=== PATIENT | female | born 1960 | race Two or more races ===

== ENCOUNTER 2020-02-21 09:21 | Emergency (ER) | payer BC, OTHER ==
--- NOTE | 2020-02-21 10:36 | EDM.PDOC ---
ED HPI GENERAL MEDICAL PROBLEM - General Chief Complaint: Respiratory Problem Stated Complaint: RESPARATORY PROBLEMS Time Seen by Provider: 02/21/20 09:31 Source of Information: Reports: Patient History Limitations: Reports: No Limitations - History of Present Illness INITIAL COMMENTS - FREE TEXT/NARRATIVE: Mildred comes to [facility] ED with a 3 day hx of productive cough, some sweats, and possible low grade fever. In addition, there is some retrosternal chest pain aggravated with coughing, occasional wheezes, and some sore throat. There is presumptive exposure to a co worker last week on and Wednesday who had vacationed in [place]. In addition, Mildred's life partner has thyroid CA awaiting treatment. She has taken cough meds OTC. 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 - Related Data Allergies Allergy/AdvReac Type Severity Reaction Status Date / Time cyclobenzaprine HCl Allergy Mild Irritabilit Verified 02/21/20 09:28 [From Flexeril] y ibuprofen Allergy Mild Hives Verified 02/21/20 09:28 morphine Allergy Mild Rash Verified 02/21/20 09:28 codeine Allergy Unknown Chest Verified 02/21/20 09:28 Tightness meperidine HCl [From Demerol] Allergy Rash Verified 02/21/20 09:28 tramadol Allergy Other Verified 02/21/20 09:28 Home Meds: Home Meds Aspirin 81 mg PO DAILY 10/12/15 [History] Hydrochlorothiazide 25 mg PO DAILY 10/12/15 [History] Insulin Detemir [Levemir Flextouch] 80 unit SQ BEDTIME 10/12/15 [History] Lisinopril 20 mg DAILY 10/12/15 [History] Omeprazole 20 mg BID 10/12/15 [History] atenoloL [Atenolol] 100 mg DAILY 10/12/15 [History] metFORMIN [Glucophage] 1,000 mg BID 10/12/15 [History] DULoxetine [Cymbalta] 60 mg PO BEDTIME 02/21/20 [History] Insulin Aspart [NovoLOG] 38 units SQ BID 02/21/20 [History] Loratadine 10 mg PO DAILY 02/21/20 [History] Past Medical History Cardiovascular History: Reports: Hypertension Respiratory History: Reports: COPD Gastrointestinal History: Reports: Diverticulosis Genitourinary History: Reports: UTI, Recurrent 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, Musculoskeletal History: Reports: Arthritis, Neck Pain, Chronic Psychiatric History: Reports: Addiction, Anxiety, Depression, Psych Hospitalization(s), Suicide Attempt Other Psychiatric History: ETOH addiction Endocrine/Metabolic History: Reports: Diabetes, Type II, Hypothyroidism, Obesity /BMI 30+ - Infectious Disease History Infectious Disease History: Reports: Measles - Past Surgical History HEENT Surgical History: Reports: Adenoidectomy, Tonsillectomy GI Surgical History: Reports: Cholecystectomy, Colonoscopy, EGD Female Surgical History: Reports: Hysterectomy, Salpingo-Oophorectomy, Tubal Ligation, Other (See Below) Other Female Surgeries/Procedures: rectocele Social & Family History - Family History Family Medical History: Noncontributory - Tobacco Use Smoking Status *Q: Former Smoker Years of Tobacco use: 35 Used Tobacco, but Quit: Yes Month/Year Tobacco Last Used: 2014 - Caffeine Use Caffeine Use: Reports: Coffee, Soda - Recreational Drug Use Recreational Drug Use: No ED ROS GENERAL - Review of Systems Review Of Systems: See Below Constitutional: Reports: Fever, Malaise, Night Sweats HEENT: Reports: Throat Pain Respiratory: Reports: Wheezing, Cough Cardiovascular: Reports: Chest Pain Endocrine: Reports: No Symptoms GI/Abdominal: Reports: No Symptoms : Reports: No Symptoms Musculoskeletal: Reports: No Symptoms Skin: Reports: No Symptoms Neurological: Reports: No Symptoms Psychiatric: Reports: No Symptoms Hematologic/Lymphatic: Reports: No Symptoms Immunologic: Reports: No Symptoms ED EXAM, GENERAL - Physical Exam Exam: See Below Exam Limited By: No Limitations General Appearance: Alert, WD/WN, No Apparent Distress Eye Exam: Bilateral Eye: EOMI, Normal Inspection, PERRL Ears: Normal External Exam Nose: Normal Inspection Throat/Mouth: Normal Lips, Normal Teeth, Normal Gums, Normal Oropharynx, No Airway Compromise Head: Normocephalic Neck: Normal Inspection, Supple, Non-Tender Respiratory/Chest: No Respiratory Distress, No Accessory Muscle Use, Chest Non- Tender, Decreased Breath Sounds, Crackles, Rhonchi, Wheezing Cardiovascular: Regular Rate, Rhythm, No Murmur GI/Abdominal: Normal Bowel Sounds, Soft, Non-Tender, No Organomegaly, No Distention, No Mass (Female) Exam: Deferred Rectal (Female) Exam: Deferred Back Exam: Normal Inspection Extremities: Normal Inspection Neurological: Alert, Oriented, CN II-XII Intact Psychiatric: Normal Affect, Normal Mood Skin Exam: Warm, Dry, Intact, Normal Color Lymphatic: No Adenopathy Course - Vital Signs Text/Narrative:: Following assessment in Respiratory Isolation room, screening tests including CBC, CMP, RSS, Rapid Inf A&B were negative. The Covid 19 is pending. The chest xray was neg. Probable bronchitis, managed sxs at this time. Last Recorded V/S: Last Vital Signs Temp 36.8 C 02/21/20 09:21 Pulse 96 02/21/20 09:21 Resp 20 02/21/20 09:21 BP 132/78 02/21/20 09:21 Pulse Ox 99 02/21/20 09:21 - Orders/Labs/Meds Orders: Active Orders 24 hr Category Date Time Status Chest 1V Frontal [CR] Stat Exams 02/21/20 09:40 Taken CORONAVIRUS COVID-19, HIWOT Routine Lab 02/21/20 10:00 Received CULTURE BLOOD [BC] Routine Lab 02/21/20 10:10 Received CULTURE BLOOD [BC] Stat Lab 02/21/20 10:05 Received CULTURE STREP A CONFIRMATION [RM] Stat Lab 02/21/20 09:40 Results STREP SCRN A RAPID W CULT CONF [RM] Stat Lab 02/21/20 09:40 Results Isolation [COMM] Routine Oth 02/21/20 09:41 Ordered Labs: Laboratory Tests 02/21/20 02/21/20 Range/Units 10:05 10:05 WBC 10.5 (4.5-12.0) X10-3/uL RBC 5.14 (3.23-5.20) x10(6)uL Hgb 14.8 (11.5-15.5) g/dL Hct 45.0 (30.0-51.3) % MCV 87.6 (80-96) fL MCH 28.9 (27.7-33.6) pg MCHC 33.0 (32.2-35.4) g/dL RDW 12.9 (11.5-15.5) % Plt Count 242 (125-369) X10(3)uL MPV 8.3 (7.4-10.4) fL Neut % (Auto) 66.2 (46-82) % Lymph % (Auto) 23.4 (13-37) % [place] % (Auto) 6.5 (4-12) % Eos % (Auto) 3 (1.0-5.0) % Baso % (Auto) 1 (0-2) % Neut # (Auto) 7.0 (1.6-8.3) # Lymph # (Auto) 2.4 (0.6-5.0) # [place] # (Auto) 0.7 (0.0-1.3) # Eos # (Auto) 0.3 (0.0-0.8) # Baso # (Auto) 0.1 (0.0-0.2) # Sodium 138 (135-145) mmol/L Potassium 4.4 (3.5-5.3) mmol/L Chloride 100 (100-110) mmol/L Carbon Dioxide 29 (21-32) mmol/L BUN 18 (7-18) mg/dL Creatinine 0.9 (0.55-1.02) mg/dL Est Cr Clr Drug Dosing 52.57 mL/min Estimated GFR (MDRD) > 60 (>60) BUN/Creatinine Ratio 20.0 (9-20) Glucose 188 H (80-116) mg/dL Calcium 9.3 (8.6-10.2) mg/dL Departure - Departure Time of Disposition: 12:11 Disposition: Home, Self-Care 01 Condition: Fair Clinical Impression: Bronchitis - Discharge Information *PRESCRIPTION DRUG MONITORING PROGRAM REVIEWED*: Not Applicable *COPY OF PRESCRIPTION DRUG MONITORING REPORT IN PATIENT CHIARA: Not Applicable Forms: ED Department Discharge Sepsis Event Note - Evaluation Sepsis Screening Result: No Definite Risk - Focused Exam Vital Signs: Vital Signs Temp Pulse Resp BP Pulse Ox 02/21/20 09:21 36.8 C 96 20 132/78 99 Date Exam was Performed: 02/21/20 Time Exam was Performed: 12:09 - Problem List & Annotations (1) Bronchitis SNOMED Code(s): 61213822 Code(s): J40 - BRONCHITIS, NOT SPECIFIED ACUTE OR CHRONIC Status: Acute Current Visit: Yes Annotation/Comment:: Suspected viral bronchitis, managed sxs. No anti bx dispensed. We will contact her when Covid 19 screen is available. - Problem List Review Problem List Initiated/Reviewed/Updated: Yes - My Orders Last 24 Hours: My Active Orders 02/21/20 09:40 Chest 1V Frontal [CR] Stat CULTURE STREP A CONFIRMATION [RM] Stat STREP SCRN A RAPID W CULT CONF [RM] Stat 02/21/20 09:41 Isolation [COMM] Routine 02/21/20 10:00 CORONAVIRUS COVID-19, HIWOT Routine 02/21/20 10:05 CULTURE BLOOD [BC] Stat 02/21/20 10:10 CULTURE BLOOD [BC] Routine - Assessment/Plan Last 24 Hours: My Active Orders 02/21/20 09:40 Chest 1V Frontal [CR] Stat CULTURE STREP A CONFIRMATION [RM] Stat STREP SCRN A RAPID W CULT CONF [RM] Stat 02/21/20 09:41 Isolation [COMM] Routine 02/21/20 10:00 CORONAVIRUS COVID-19, HIWOT Routine 02/21/20 10:05 CULTURE BLOOD [BC] Stat 02/21/20 10:10 CULTURE BLOOD [BC] Routine Plan: Follow up with PCP.
--- NOTE | 2020-02-21 11:31 | CR ---
INDICATION: Possible pneumonia. CHEST: An AP upright view of the chest 02/21/20 was compared with 08/09/14, again revealing evidence of exogenous obesity. The heart appears to be at the upper limits of normal in size but is emphasized by the AP positioning. A definite active infiltrate or effusion was not identified. IMPRESSION: 1. No definite acute process. 2. Possible ASHD. 3. Exogenous obesity. MTDD
[2020-02-21 13:42] VITALS: BP 128/72; PULSE 94
== END 2020-02-21 12:35 | disposition home or self-care (01) ==
LOC: FB.ED 09:21
DX: J40 Bronchitis, not specified as acute or chronic (principal); E11.9 Type 2 diabetes mellitus without complications; E03.9 Hypothyroidism, unspecified; F41.9 Anxiety disorder, unspecified; F32.9 Major depressive disorder, single episode, unspecified; J44.9 Chronic obstructive pulmonary disease, unspecified; E66.9 Obesity, unspecified; I10 Essential (primary) hypertension; M19.90 Unspecified osteoarthritis, unspecified site; Z87.891 Personal history of nicotine dependence; Z88.5 Allergy status to narcotic agent; Z79.4 Long term (current) use of insulin; Z79.899 Other long term (current) drug therapy; Z88.8 Allergy status to other drugs, medicaments and biological substances
CPT/HCPCS: 36415; 71045; 80048; 85025; 87040; 87081; 87804; 87804-59; 87880-QW; 99285-25; U0002

== ENCOUNTER 2020-10-30 18:57 | Emergency (ER) | payer BC ==
[2020-10-30] MEDS ORDERED: Aspirin 81 MG Tab.Chew PO STA (19:37)
[2020-10-30] MEDS ORDERED: Morphine 2 MG/ML SYRINGE IVPUSH STA (20:47)
[2020-10-30] MEDS: Sodium Chloride 0.9% 10 ML Syringe FLUSH PRN ×2 (20:50→20:51)
[2020-10-30 22:25] VITALS: BP 123/67; PULSE 120
--- NOTE | 2020-10-31 02:37 | EDM.PDOC ---
ED HPI GENERAL MEDICAL PROBLEM - General Chief Complaint: Chest Pain Stated Complaint: CHEST PAIN Time Seen by Provider: 10/30/20 19:00 Source of Information: Reports: Patient History Limitations: Reports: No Limitations - History of Present Illness INITIAL COMMENTS - FREE TEXT/NARRATIVE: Patient presented to the ED because of chest pain which started 2 days ago. The pain is sharp, 4/10, with associated dyspnea. Denies having any fever, chills, cough/cold symptoms or any nausea, vomiting, diarrhea. midsternal Pain Score (Numeric/FACES): 1 - Related Data Allergies Allergy/AdvReac Type Severity Reaction Status Date / Time cyclobenzaprine HCl Allergy Mild Irritabilit Verified 10/30/20 19:08 [From Flexeril] y ibuprofen Allergy Mild Hives Verified 10/30/20 19:08 morphine Allergy Mild Rash Verified 10/30/20 19:08 codeine Allergy Unknown Chest Verified 10/30/20 19:08 Tightness meperidine HCl [From Demerol] Allergy Rash Verified 10/30/20 19:08 tramadol Allergy Other Verified 10/30/20 19:08 Home Meds: Home Meds Aspirin 81 mg PO DAILY 10/12/15 [History] Insulin Detemir [Levemir Flextouch] 80 unit SQ BEDTIME 10/12/15 [History] Lisinopril 30 mg PO DAILY 10/12/15 [History] metFORMIN [Glucophage] 1,000 mg PO BID 10/12/15 [History] Insulin Aspart [NovoLOG] 10 units SQ BID PRN 02/21/20 [History] Loratadine 10 mg PO DAILY 02/21/20 [History] Amoxicillin 500 mg PO Q6H 10/30/20 [History] DULoxetine [Cymbalta] 20 mg PO DAILY 10/30/20 [History] DULoxetine [Cymbalta] 60 mg PO DAILY 10/30/20 [History] Fluconazole [Diflucan] 150 mg PO DAILY PRN 10/30/20 [History] Metoprolol Succinate 50 mg PO DAILY 10/30/20 [History] Omeprazole 40 mg PO DAILY 10/30/20 [History] oxyCODONE HCl/Acetaminophen [Oxycodone-Acetaminophen 5-325] 1 each PO Q6H PRN 10/30/20 [History] Past Medical History HEENT History: Reports: Other (See Below) Other HEENT History: 1220 lower bottom teeth extracted/sutures in place, placed on Amoxicillin 500mg and oxycodone/apap 5mg prn Cardiovascular History: Reports: Hypertension Respiratory History: Reports: COPD Gastrointestinal History: Reports: Diverticulosis Genitourinary History: Reports: UTI, Recurrent 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, Musculoskeletal History: Reports: Arthritis, Neck Pain, Chronic Psychiatric History: Reports: Addiction, Anxiety, Depression, Psych Hospitalization(s), Suicide Attempt Other Psychiatric History: ETOH addiction Endocrine/Metabolic History: Reports: Diabetes, Type II, Hypothyroidism, Obesity/BMI 30+ - Infectious Disease History Infectious Disease History: Reports: Measles - Past Surgical History Head Surgeries/Procedures: Reports: None HEENT Surgical History: Reports: Adenoidectomy, Tonsillectomy Cardiovascular Surgical History: Reports: None Respiratory Surgical History: Reports: None GI Surgical History: Reports: Cholecystectomy, Colonoscopy, EGD Female Surgical History: Reports: Hysterectomy, Salpingo-Oophorectomy, Tubal Ligation, Other (See Below) Other Female Surgeries/Procedures: rectocele Endocrine Surgical History: Reports: Other (See Below) Other Endocrine Surgeries/Procedures: blood sugar reader right upper/arm Social & Family History - Family History Family Medical History: No Pertinent Family History - Tobacco Use Tobacco Use Status *Q: Former Tobacco User Used Tobacco, but Quit: Yes Month/Year Tobacco Last Used: 2014 - Caffeine Use Caffeine Use: Reports: Soda Caffeine Use Comment: 1-2 diet sodas daily - Recreational Drug Use Recreational Drug Use: No ED ROS GENERAL - Review of Systems Review Of Systems: See Below Constitutional: Reports: No Symptoms HEENT: Reports: No Symptoms Respiratory: Reports: No Symptoms Cardiovascular: Reports: Chest Pain Endocrine: Reports: No Symptoms GI/Abdominal: Reports: No Symptoms : Reports: No Symptoms Musculoskeletal: Reports: No Symptoms Skin: Reports: No Symptoms Neurological: Reports: No Symptoms Psychiatric: Reports: No Symptoms ED EXAM, GENERAL - Physical Exam Exam: See Below Exam Limited By: No Limitations General Appearance: Alert, No Apparent Distress Eye Exam: Bilateral Eye: PERRL Ears: Normal External Exam Nose: Normal Inspection, Normal Mucosa Throat/Mouth: Normal Inspection Head: Atraumatic, Normocephalic Neck: Normal Inspection, Supple, Non-Tender, Full Range of Motion Respiratory/Chest: No Respiratory Distress, Lungs Clear, Normal Breath Sounds Cardiovascular: Normal Peripheral Pulses, Regular Rate, Rhythm, No Edema GI/Abdominal: Normal Bowel Sounds, Soft, Non-Tender, No Organomegaly Back Exam: Normal Inspection, Full Range of Motion Extremities: Normal Inspection, Normal Range of Motion, Non-Tender Course - Vital Signs Text/Narrative:: Labs/EKG/CXR was reviewed with patient EKG-new LBBB Trop#1-51 Trop #2-1015 ASA 324 po x1 NTG 0.4 mg SL Morphine 2 mg IV x1 Heparin 4000 U IV bolus Heparin drip @ 1000 U/hr Case discussed with Dr Sousa who agreed with the above plan of care. Last Recorded V/S: Last Vital Signs Temp 36.7 C 10/30/20 21:51 Pulse 120 H 10/30/20 21:51 Resp 20 10/30/20 21:51 BP 123/67 10/30/20 21:51 Pulse Ox 100 10/30/20 21:51 - Orders/Labs/Meds Orders: Active Orders 24 hr Category Date Time Status Blood Glucose Check, Bedside [RC] ONETIME Care 10/30/20 22:46 Active EKG Documentation Completion [RC] ASDIRECTED Care 10/30/20 19:36 Active EKG Documentation Completion [RC] ASDIRECTED Care 10/31/20 02:30 Ordered Oxygen Therapy Adult [Oxygen Therapy, ED] [RC] Care 10/30/20 22:46 Active ASDIRECTED Chest 1V Frontal [CR] Stat Exams 10/30/20 19:36 Taken Sodium Chloride 0.9% [Saline Flush] Med 10/30/20 20:45 Active 10 ml FLUSH ASDIRECTED PRN EKG 12 Lead [EK] Routine Ther 10/30/20 19:35 Ordered EKG 12 Lead [EK] Routine Ther 10/31/20 02:26 Ordered Medication Orders Sodium Chloride (Saline Flush) 10 ml FLUSH ASDIRECTED PRN PRN Reason: Keep Vein Open Last Admin: 10/30/20 20:51 Dose: 10 ml Documented by: Admin: 10/30/20 20:50 Dose: 10 ml Documented by: DEN Labs: Laboratory Tests 10/30/20 10/30/20 10/30/20 Range/Units 19:15 19:15 19:15 WBC 11.7 H (3.0-10.3) x10-3/uL RBC 4.97 (3.60-5.20) x10(6)uL Hgb 14.0 (11.4-15.5) g/dL Hct 43.3 (34.2-48.2) % MCV 87.1 (76.7-100.5) fL MCH 28.1 (23.9-33.9) pg MCHC 32.3 (31.9-34.8) g/dL RDW 13.7 (12.3-16.5) % Plt Count 245 (151-488) x10(3)uL MPV 8.1 (7.1-12.4) fL Neut % (Auto) 66.9 (30.8-76.2) % Lymph % (Auto) 26.0 (18.4-52.1) % [place] % (Auto) 4.7 (4.4-15.7) % Eos % (Auto) 2.0 (0.6-8.1) % Baso % (Auto) 0.4 (0.2-1.5) % Neut # (Auto) 7.8 H (1.5-6.3) x10-3/uL Lymph # (Auto) 3.0 (1.0-4.4) x10-3/uL [place] # (Auto) 0.5 (0.3-1.0) x10-3/uL Eos # (Auto) 0.2 (0.0-0.8) x10-3/uL Baso # (Auto) 0.1 (0.0-0.1) x10-3/uL PT (9.0-11.1) sec INR (1.00-1.24) APTT (24.4-33.2) SECONDS D-Dimer, Quantitative 1.93 H (0.0-0.59) mg/LFEU Sodium 136 (135-145) mmol/L Potassium 4.0 (3.5-5.3) mmol/L Chloride 99 L (100-110) mmol/L Carbon Dioxide 28 (21-32) mmol/L BUN 15 (7-18) mg/dL Creatinine 0.9 (0.55-1.02) mg/dL Est Cr Clr Drug Dosing TNP Estimated GFR (MDRD) > 60 (>60) BUN/Creatinine Ratio 16.7 (9-20) Glucose 238 H (80-116) mg/dL POC Glucose (74-100) mg/dL Calcium 8.9 (8.6-10.2) mg/dL Total Bilirubin 0.6 (0.1-1.3) mg/dL AST 29 H (5-25) IU/L ALT 28 (12-36) U/L Alkaline Phosphatase 108 (56-112) IU/L Troponin I (4.0-60.3) pg/mL NT-Pro-B Natriuret Pep (<=125) pg/mL Total Protein 8.9 H (6.0-8.0) g/dL Albumin 3.4 (3.2-4.6) g/dL Globulin 5.5 g/dL Albumin/Globulin Ratio 0.6 10/30/20 10/30/20 10/30/20 Range/Units 19:15 19:15 19:22 WBC (3.0-10.3) x10-3/uL RBC (3.60-5.20) x10(6)uL Hgb (11.4-15.5) g/dL Hct (34.2-48.2) % MCV (76.7-100.5) fL MCH (23.9-33.9) pg MCHC (31.9-34.8) g/dL RDW (12.3-16.5) % Plt Count (151-488) x10(3)uL MPV (7.1-12.4) fL Neut % (Auto) (30.8-76.2) % Lymph % (Auto) (18.4-52.1) % [place] % (Auto) (4.4-15.7) % Eos % (Auto) (0.6-8.1) % Baso % (Auto) (0.2-1.5) % Neut # (Auto) (1.5-6.3) x10-3/uL Lymph # (Auto) (1.0-4.4) x10-3/uL [place] # (Auto) (0.3-1.0) x10-3/uL Eos # (Auto) (0.0-0.8) x10-3/uL Baso # (Auto) (0.0-0.1) x10-3/uL PT 10.9 (9.0-11.1) sec INR 1.01 (1.00-1.24) APTT 25.9 (24.4-33.2) SECONDS D-Dimer, Quantitative (0.0-0.59) mg/LFEU Sodium (135-145) mmol/L Potassium (3.5-5.3) mmol/L Chloride (100-110) mmol/L Carbon Dioxide (21-32) mmol/L BUN (7-18) mg/dL Creatinine (0.55-1.02) mg/dL Est Cr Clr Drug Dosing Estimated GFR (MDRD) (>60) BUN/Creatinine Ratio (9-20) Glucose (80-116) mg/dL POC Glucose 189 H (74-100) mg/dL Calcium (8.6-10.2) mg/dL Total Bilirubin (0.1-1.3) mg/dL AST (5-25) IU/L ALT (12-36) U/L Alkaline Phosphatase (56-112) IU/L Troponin I 51.0 (4.0-60.3) pg/mL NT-Pro-B Natriuret Pep 25 (<=125) pg/mL Total Protein (6.0-8.0) g/dL Albumin (3.2-4.6) g/dL Globulin g/dL Albumin/Globulin Ratio 10/31/20 Range/Units 02:00 WBC (3.0-10.3) x10-3/uL RBC (3.60-5.20) x10(6)uL Hgb (11.4-15.5) g/dL Hct (34.2-48.2) % MCV (76.7-100.5) fL MCH (23.9-33.9) pg MCHC (31.9-34.8) g/dL RDW (12.3-16.5) % Plt Count (151-488) x10(3)uL MPV (7.1-12.4) fL Neut % (Auto) (30.8-76.2) % Lymph % (Auto) (18.4-52.1) % [place] % (Auto) (4.4-15.7) % Eos % (Auto) (0.6-8.1) % Baso % (Auto) (0.2-1.5) % Neut # (Auto) (1.5-6.3) x10-3/uL Lymph # (Auto) (1.0-4.4) x10-3/uL [place] # (Auto) (0.3-1.0) x10-3/uL Eos # (Auto) (0.0-0.8) x10-3/uL Baso # (Auto) (0.0-0.1) x10-3/uL PT (9.0-11.1) sec INR (1.00-1.24) APTT (24.4-33.2) SECONDS D-Dimer, Quantitative (0.0-0.59) mg/LFEU Sodium (135-145) mmol/L Potassium (3.5-5.3) mmol/L Chloride (100-110) mmol/L Carbon Dioxide (21-32) mmol/L BUN (7-18) mg/dL Creatinine (0.55-1.02) mg/dL Est Cr Clr Drug Dosing Estimated GFR (MDRD) (>60) BUN/Creatinine Ratio (9-20) Glucose (80-116) mg/dL POC Glucose (74-100) mg/dL Calcium (8.6-10.2) mg/dL Total Bilirubin (0.1-1.3) mg/dL AST (5-25) IU/L ALT (12-36) U/L Alkaline Phosphatase (56-112) IU/L Troponin I 1014.7 H* (4.0-60.3) pg/mL NT-Pro-B Natriuret Pep (<=125) pg/mL Total Protein (6.0-8.0) g/dL Albumin (3.2-4.6) g/dL Globulin g/dL Albumin/Globulin Ratio Meds: Medications Generic Name Dose Route Start Last Admin Trade Name Freq PRN Reason Stop Dose Admin Sodium Chloride 10 ml 10/30/20 20:45 10/30/20 20:51 Saline Flush FLUSH 10 ml ASDIRECTED PRN Administration Keep Vein Open Discontinued Medications Generic Name Dose Route Start Last Admin Trade Name Freq PRN Reason Stop Dose Admin Aspirin 324 mg 10/30/20 19:37 10/30/20 19:15 Aspirin PO 10/30/20 19:38 324 mg NOW STA Administration Morphine Sulfate 2 mg 10/30/20 20:47 10/30/20 20:51 Morphine IVPUSH 10/30/20 20:48 2 mg NOW STA Administration Departure - Departure Time of Disposition: 02:50 Disposition: DC/Tfer to Acute Hospital 02 Reason for Transfer *Q: Other Condition: Good Clinical Impression: NSTEMI (non-ST elevated myocardial infarction) Referrals: PCP,None [Primary Care Provider] - Sepsis Event Note (ED) - Evaluation Sepsis Screening Result: No Definite Risk - Focused Exam Vital Signs: Vital Signs Temp Pulse Resp BP BP Pulse Ox Pulse Ox 10/30/20 21:51 36.7 C 120 H 20 123/67 100 10/30/20 20:27 111 H 17 167/97 H 172/103 H 100 10/30/20 19:15 98 10/30/20 18:57 36.6 C 106 H 18 188/100 H 100 - My Orders Last 24 Hours: My Active Orders 10/30/20 19:35 EKG 12 Lead [EK] Routine 10/30/20 19:36 EKG Documentation Completion [RC] ASDIRECTED Chest 1V Frontal [CR] Stat 10/30/20 20:45 Sodium Chloride 0.9% [Saline Flush] 10 ml FLUSH ASDIRECTED PRN 10/30/20 22:46 Blood Glucose Check, Bedside [RC] ONETIME Oxygen Therapy Adult [Oxygen Therapy, ED] [RC] ASDIRECTED 10/31/20 02:26 EKG 12 Lead [EK] Routine 10/31/20 02:30 EKG Documentation Completion [RC] ASDIRECTED - Assessment/Plan Last 24 Hours: My Active Orders 10/30/20 19:35 EKG 12 Lead [EK] Routine 10/30/20 19:36 EKG Documentation Completion [RC] ASDIRECTED Chest 1V Frontal [CR] Stat 10/30/20 20:45 Sodium Chloride 0.9% [Saline Flush] 10 ml FLUSH ASDIRECTED PRN 10/30/20 22:46 Blood Glucose Check, Bedside [RC] ONETIME Oxygen Therapy Adult [Oxygen Therapy, ED] [RC] ASDIRECTED 10/31/20 02:26 EKG 12 Lead [EK] Routine 10/31/20 02:30 EKG Documentation Completion [RC] ASDIRECTED
[2020-10-31] MEDS ORDERED: Heparin Sodium 5,000 Units/ML Vial IVPUSH ONE (02:48)
[2020-10-31] MEDS ORDERED: Heparin Sodium/0.45% NaCl 500 ML IV SCH (02:49)
[2020-10-31] MEDS ORDERED: Morphine 2 MG/ML SYRINGE IVPUSH STA (03:15)
[2020-10-31] MEDS: Sodium Chloride 0.9% 10 ML Syringe FLUSH PRN (03:22)
== END 2020-10-31 03:35 ==
LOC: FB.ED 18:57
DX: I21.4 Non-ST elevation (NSTEMI) myocardial infarction (principal); I10 Essential (primary) hypertension; J44.9 Chronic obstructive pulmonary disease, unspecified; M19.90 Unspecified osteoarthritis, unspecified site; F41.9 Anxiety disorder, unspecified; F32.9 Major depressive disorder, single episode, unspecified; E11.9 Type 2 diabetes mellitus without complications; E03.9 Hypothyroidism, unspecified; E66.9 Obesity, unspecified; Z87.891 Personal history of nicotine dependence; Z68.35 Body mass index [BMI] 35.0-35.9, adult; Z88.8 Allergy status to other drugs, medicaments and biological substances; Z88.6 Allergy status to analgesic agent; Z88.5 Allergy status to narcotic agent; Z79.82 Long term (current) use of aspirin; Z79.4 Long term (current) use of insulin; Z79.899 Other long term (current) drug therapy
CPT/HCPCS: 36415; 71045; 80053; 82962; 83880; 84484; 85025; 85379; 85610; 85730; 93005; 96365; 96375; 96376; 99285; A9270; J1644; J2270

== ENCOUNTER 2021-01-20 13:51 | Emergency (ER) | payer BC ==
[2021-01-20] MEDS ORDERED: Sodium Chloride 0.9% 10 ML Syringe FLUSH PRN (13:52)
[2021-01-20] MEDS ORDERED: Aspirin 81 MG Tab.Chew PO ONE ×2 (13:54→13:59)
[2021-01-20] MEDS ORDERED: Nitroglycerin 0.4 MG Tab.SL SL PRN (13:59)
--- NOTE | 2021-01-20 14:07 | EDM.PDOC ---
ED HPI GENERAL MEDICAL PROBLEM - General Chief Complaint: Cardiovascular Problem Stated Complaint: CHEST PAIN Time Seen by Provider: 01/20/21 14:01 Source of Information: Reports: Patient History Limitations: Reports: No Limitations - History of Present Illness INITIAL COMMENTS - FREE TEXT/NARRATIVE: Presents with non-radiating substernal chest pain, described as an ache, onset 0600 today. Pain is exacerbated with exertion. Denies SOB. Has had intermittent chest pain x 1 week. Patient had a NSTEMI on 10/30/20, transferred to [facility], underwent LAD stent placement. Patient states today's pain feels similar. PMHx includes T2DM, CAD, and HTN. Patient took ASA 81mg PO this morning, and NTG SL x 1 at 12 noon. Chest pain improved after the NTG (from 4/10 to 3/10). Onset Date: 01/20/21 Onset Time: 06:00 Location: Reports: Chest Quality: Reports: Ache Severity: Moderate Worsens with: Reports: Other (Exertion) - Related Data Allergies Allergy/AdvReac Type Severity Reaction Status Date / Time cyclobenzaprine HCl Allergy Mild Irritabilit Verified 10/30/20 19:08 [From Flexeril] y ibuprofen Allergy Mild Hives Verified 10/30/20 19:08 morphine Allergy Mild Rash Verified 10/30/20 19:08 codeine Allergy Unknown Chest Verified 10/30/20 19:08 Tightness tramadol Allergy Other Verified 10/30/20 19:08 Home Meds: Home Meds Aspirin 81 mg PO DAILY 10/12/15 [History] Insulin Detemir [Levemir Flextouch] 80 unit SQ BEDTIME 10/12/15 [History] Lisinopril 30 mg PO DAILY 10/12/15 [History] metFORMIN [Glucophage] 1,000 mg PO BID 10/12/15 [History] Insulin Aspart [NovoLOG] 10 units SQ BID PRN 02/21/20 [History] Loratadine 10 mg PO DAILY 02/21/20 [History] Amoxicillin 500 mg PO Q6H 10/30/20 [History] DULoxetine [Cymbalta] 20 mg PO DAILY 10/30/20 [History] DULoxetine [Cymbalta] 60 mg PO DAILY 10/30/20 [History] Fluconazole [Diflucan] 150 mg PO DAILY PRN 10/30/20 [History] Metoprolol Succinate 50 mg PO DAILY 10/30/20 [History] Omeprazole 40 mg PO DAILY 10/30/20 [History] oxyCODONE HCl/Acetaminophen [Oxycodone-Acetaminophen 5-325] 1 each PO Q6H PRN 10/30/20 [History] Past Medical History HEENT History: Reports: Other (See Below) Other HEENT History: 10-30-20 lower bottom teeth extracted/sutures in place, placed on Amoxicillin 500mg and oxycodone/apap 5mg prn Cardiovascular History: Reports: Hypertension, [place] (10/2020), PTCA, Other (See Below) (LBBB) Respiratory History: Reports: COPD Gastrointestinal History: Reports: Diverticulosis Genitourinary History: Reports: UTI, Recurrent 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, Musculoskeletal History: Reports: Arthritis, Neck Pain, Chronic Psychiatric History: Reports: Addiction, Anxiety, Depression, Psych Hospitalization(s), Suicide Attempt Other Psychiatric History: ETOH addiction Endocrine/Metabolic History: Reports: Diabetes, Type II, Hypothyroidism, Obesity/BMI 30+ - Infectious Disease History Infectious Disease History: Reports: Measles - Past Surgical History Head Surgeries/Procedures: Reports: None HEENT Surgical History: Reports: Adenoidectomy, Tonsillectomy Cardiovascular Surgical History: Reports: Coronary Artery Stent Respiratory Surgical History: Reports: None GI Surgical History: Reports: Cholecystectomy, Colonoscopy, EGD Female Surgical History: Reports: Hysterectomy, Salpingo-Oophorectomy, Tubal Ligation, Other (See Below) Other Female Surgeries/Procedures: rectocele Endocrine Surgical History: Reports: Other (See Below) Other Endocrine Surgeries/Procedures: blood sugar reader right upper/arm Social & Family History - Family History Family Medical History: No Pertinent Family History - Tobacco Use Tobacco Use Within Last Twelve Months: No - Caffeine Use Caffeine Use: Reports: Soda Caffeine Use Comment: 1-2 diet sodas daily ED ROS GENERAL - Review of Systems Review Of Systems: Comprehensive ROS is negative, except as noted in HPI. ED EXAM, GENERAL - Physical Exam Exam: See Below Exam Limited By: No Limitations General Appearance: Alert, WD/WN, No Apparent Distress Throat/Mouth: No Airway Compromise Head: Atraumatic, Normocephalic Neck: Full Range of Motion Respiratory/Chest: No Respiratory Distress, Lungs Clear, Normal Breath Sounds, Chest Non-Tender Cardiovascular: Regular Rate, Rhythm, No Gallop, No Murmur GI/Abdominal: Normal Bowel Sounds, Soft, Non-Tender, No Distention Back Exam: Full Range of Motion Extremities: Normal Range of Motion, Non-Tender Neurological: Alert, Normal Cognition Psychiatric: Normal Affect, Normal Mood Skin Exam: Warm, Dry, Intact #1 Interpretation EKG Date: 01/20/21 Time: 13:48 Rhythm: NSR Rate (Beats/Min): 98 [place]: Normal P-Wave: Present QRS: Other (incomplete LBBB) ST-T: Normal QT: Normal Comparison: No Change (10/30/2020) Course - Vital Signs Last Recorded V/S: Last Vital Signs Temp 37.0 C 01/20/21 13:51 Pulse 96 01/20/21 13:51 Resp 18 01/20/21 13:51 BP 111/57 L 01/20/21 14:22 Pulse Ox 98 01/20/21 13:51 - Orders/Labs/Meds Orders: Active Orders 24 hr Category Date Time Status EKG Documentation Completion [RC] ASDIRECTED Care 01/20/21 13:52 Active CXR [Chest 1V Frontal] [CR] Stat Exams 01/20/21 13:52 Taken Heparin 25,000 Units @ 20MLS/HR Med 01/20/21 14:45 Ordered Heparin Sodium/0.45% NaCl [Heparin 25,000 Units in 1/2 NS 500 ML] 500 ml IV ASDIRECTED Nitroglycerin [Nitrostat] Med 01/20/21 13:59 Active 0.4 mg SL Q5M PRN Sodium Chloride 0.9% [Normal Saline] 500 ml Med 01/20/21 14:33 Active IV .BOLUS Sodium Chloride 0.9% [Saline Flush] Med 01/20/21 13:52 Active 10 ml FLUSH ASDIRECTED PRN Saline Lock Insert [OM.PC] Routine Oth 01/20/21 13:52 Ordered EKG 12 Lead [EK] Stat Ther 01/20/21 13:52 Ordered Medication Orders Sodium Chloride (Normal Saline) 500 mls @ 500 mls/hr IV .BOLUS ONE Stop: 01/20/21 15:32 Last Admin: 01/20/21 14:40 Dose: 500 mls/hr Documented by: ANAM Heparin Sodium/Sodium Chloride (Heparin 25,000 Units In 1/2 Ns 500 Ml) 500 mls @ 20 mls/hr IV ASDIRECTED THUAN Nitroglycerin (Nitrostat) 0.4 mg SL Q5M PRN PRN Reason: Chest Pain Last Admin: 01/20/21 14:22 Dose: 0.4 mg Documented by: ANAM Sodium Chloride (Saline Flush) 10 ml FLUSH ASDIRECTED PRN PRN Reason: Keep Vein Open Labs: Laboratory Tests 01/20/21 01/20/21 01/20/21 Range/Units 14:09 14:09 14:09 WBC 9.4 (3.0-10.3) x10-3/uL RBC 4.12 (3.60-5.20) x10(6)uL Hgb 12.0 (11.4-15.5) g/dL Hct 35.0 (34.2-48.2) % MCV 85.1 (76.7-100.5) fL MCH 29.0 (23.9-33.9) pg MCHC 34.1 (31.9-34.8) g/dL RDW 14.0 (12.3-16.5) % Plt Count 204 (151-488) x10(3)uL MPV 7.5 (7.1-12.4) fL Neut % (Auto) 54.8 (30.8-76.2) % Lymph % (Auto) 34.3 (18.4-52.1) % [place] % (Auto) 6.5 (4.4-15.7) % Eos % (Auto) 2.8 (0.6-8.1) % Baso % (Auto) 1.6 H (0.2-1.5) % Neut # (Auto) 5.2 (1.5-6.3) x10-3/uL Lymph # (Auto) 3.2 (1.0-4.4) x10-3/uL [place] # (Auto) 0.6 (0.3-1.0) x10-3/uL Eos # (Auto) 0.3 (0.0-0.8) x10-3/uL Baso # (Auto) 0.1 (0.0-0.1) x10-3/uL PT 10.9 (9.0-11.1) sec INR 1.01 (1.00-1.24) APTT 24.5 (24.4-33.2) SECONDS Sodium 132 L (135-145) mmol/L Potassium 4.1 (3.5-5.3) mmol/L Chloride 97 L (100-110) mmol/L Carbon Dioxide 26 (21-32) mmol/L BUN 21 H (7-18) mg/dL Creatinine 1.2 H (0.55-1.02) mg/dL Est Cr Clr Drug Dosing TNP Estimated GFR (MDRD) 46 L (>60) BUN/Creatinine Ratio 17.5 (9-20) Glucose 216 H (80-116) mg/dL Calcium 8.4 L (8.6-10.2) mg/dL Total Bilirubin 0.4 (0.1-1.3) mg/dL AST 30 H (5-25) IU/L ALT 30 (12-36) U/L Alkaline Phosphatase 124 H (56-112) IU/L Troponin I (4.0-60.3) pg/mL Total Protein 8.7 H (6.0-8.0) g/dL Albumin 3.5 (3.2-4.6) g/dL Globulin 5.2 g/dL Albumin/Globulin Ratio 0.7 // Range/Units 14:09 WBC (3.0-10.3) x10-3/uL RBC (3.60-5.20) x10(6)uL Hgb (11.4-15.5) g/dL Hct (34.2-48.2) % MCV (76.7-100.5) fL MCH (23.9-33.9) pg MCHC (31.9-34.8) g/dL RDW (12.3-16.5) % Plt Count (151-488) x10(3)uL MPV (7.1-12.4) fL Neut % (Auto) (30.8-76.2) % Lymph % (Auto) (18.4-52.1) % [place] % (Auto) (4.4-15.7) % Eos % (Auto) (0.6-8.1) % Baso % (Auto) (0.2-1.5) % Neut # (Auto) (1.5-6.3) x10-3/uL Lymph # (Auto) (1.0-4.4) x10-3/uL [place] # (Auto) (0.3-1.0) x10-3/uL Eos # (Auto) (0.0-0.8) x10-3/uL Baso # (Auto) (0.0-0.1) x10-3/uL PT (9.0-11.1) sec INR (1.00-1.24) APTT (24.4-33.2) SECONDS Sodium (135-145) mmol/L Potassium (3.5-5.3) mmol/L Chloride (100-110) mmol/L Carbon Dioxide (21-32) mmol/L BUN (7-18) mg/dL Creatinine (0.55-1.02) mg/dL Est Cr Clr Drug Dosing Estimated GFR (MDRD) (>60) BUN/Creatinine Ratio (9-20) Glucose (80-116) mg/dL Calcium (8.6-10.2) mg/dL Total Bilirubin (0.1-1.3) mg/dL AST (5-25) IU/L ALT (12-36) U/L Alkaline Phosphatase (56-112) IU/L Troponin I < 4.0 L (4.0-60.3) pg/mL Total Protein (6.0-8.0) g/dL Albumin (3.2-4.6) g/dL Globulin g/dL Albumin/Globulin Ratio Meds: Medications Generic Name Dose Route Start Last Admin Trade Name Dmitriq PRN Reason Stop Dose Admin Sodium Chloride 500 mls @ 500 mls/hr 01/20/21 14:33 01/20/21 14:40 Normal Saline IV 01/20/21 15:32 500 mls/hr .BOLUS ONE Administration Heparin Sodium/Sodium Chloride 500 mls @ 20 mls/hr 01/20/21 14:45 Heparin 25,000 Units In 1/2 Ns 500 Ml IV ASDIRECTED THUAN Nitroglycerin 0.4 mg 01/20/21 13:59 01/20/21 14:22 Nitrostat SL 0.4 mg Q5M PRN Administration Chest Pain Sodium Chloride 10 ml 01/20/21 13:52 Saline Flush FLUSH ASDIRECTED PRN Keep Vein Open Discontinued Medications Generic Name Dose Route Start Last Admin Trade Name Linn PRN Reason Stop Dose Admin Aspirin 324 mg 01/20/21 13:54 01/20/21 14:16 Aspirin PO 01/20/21 13:55 Not Given ONETIME ONE Aspirin 243 mg 01/20/21 13:59 01/20/21 14:10 Aspirin PO 01/20/21 14:00 243 mg ONETIME ONE Administration Heparin Sodium (Porcine) 4,000 units 01/20/21 14:40 Heparin Sodium IVPUSH 01/20/21 14:41 ONETIME ONE - Radiology Interpretation Free Text/Narrative:: CXR: No acute process. (ED provider interpretation) - Re-Assessments/Exams Free Text/Narrative Re-Assessment/Exam: 01/20/21 14:30 Chest pain improved from 310 to 110 after NTG SL x 1, however SBP dropped to 100. Will give NS 500ml bolus IV. 01/20/21 14:42 Dr. Sousa ([facility] ED MD) accepts patient for transfer, recommends Heparin bolus and drip. Will transport by ALS ground. Departure - Departure Time of Disposition: 14:43 Disposition: DC/Tfer to Acute Hospital 02 Reason for Transfer *Q: Primary PCI Indicated Condition: Fair Clinical Impression: Unstable angina Forms: ED Department Discharge Sepsis Event Note (ED) - Focused Exam Vital Signs: Vital Signs Temp Pulse Resp BP BP Pulse Ox 01/20/21 14:22 111/57 L 01/20/21 13:51 37.0 C 96 18 123/72 98 - My Orders Last 24 Hours: My Active Orders 01/20/21 13:52 EKG Documentation Completion [RC] ASDIRECTED CXR [Chest 1V Frontal] [CR] Stat Sodium Chloride 0.9% [Saline Flush] 10 ml FLUSH ASDIRECTED PRN Saline Lock Insert [OM.PC] Routine EKG 12 Lead [EK] Stat 01/20/21 13:59 Nitroglycerin [Nitrostat] 0.4 mg SL Q5M PRN 01/20/21 14:33 Sodium Chloride 0.9% [Normal Saline] 500 ml IV .BOLUS 01/20/21 14:45 Heparin 25,000 Units @ 20MLS/HR Heparin Sodium/0.45% NaCl [Heparin 25,000 Units in 1/2 NS 500 ML] 500 ml IV ASDIRECTED - Assessment/Plan Last 24 Hours: My Active Orders 01/20/21 13:52 EKG Documentation Completion [RC] ASDIRECTED CXR [Chest 1V Frontal] [CR] Stat Sodium Chloride 0.9% [Saline Flush] 10 ml FLUSH ASDIRECTED PRN Saline Lock Insert [OM.PC] Routine EKG 12 Lead [EK] Stat 01/20/21 13:59 Nitroglycerin [Nitrostat] 0.4 mg SL Q5M PRN 01/20/21 14:33 Sodium Chloride 0.9% [Normal Saline] 500 ml IV .BOLUS 01/20/21 14:45 Heparin 25,000 Units @ 20MLS/HR Heparin Sodium/0.45% NaCl [Heparin 25,000 Units in 1/2 NS 500 ML] 500 ml IV ASDIRECTED
[2021-01-20] MEDS ORDERED: Sodium Chloride 0.9% 500 ML IV ONE (14:33)
[2021-01-20] MEDS ORDERED: Heparin Sodium 5,000 Units/ML Vial IVPUSH ONE (14:40)
[2021-01-20] MEDS ORDERED: Heparin Sodium/0.45% NaCl 500 ML IV SCH (14:45)
[2021-01-20 17:08] VITALS: BP 94/59; PULSE 91
--- NOTE | 2021-01-20 17:13 | CR ---
INDICATION: Chest pain. CHEST ONE VIEW: Portable AP upright view of the chest 01/20/21 was compared with 10/30/20 and 02/21/20. The heart did not appear enlarged allowing for the AP positioning and what appears to be a relatively poor inspiration. Overlying EKG leads are noted. Degenerative changes noted in the spine. Evidence of exogenous obesity is noted. An active infiltrate or effusion was not identified. IMPRESSION: No acute process - stable appearing chest x-ray. MTDD
== END 2021-01-20 15:39 ==
LOC: FB.ED 13:51
DX: I20.0 Unstable angina (principal); I10 Essential (primary) hypertension; I25.2 Old myocardial infarction; E11.9 Type 2 diabetes mellitus without complications; E66.9 Obesity, unspecified; Z88.5 Allergy status to narcotic agent; Z88.6 Allergy status to analgesic agent; Z79.4 Long term (current) use of insulin; Z79.82 Long term (current) use of aspirin; Z68.39 Body mass index [BMI] 39.0-39.9, adult
CPT/HCPCS: 36415; 71045; 80053; 84484; 85025; 85610; 85730; 93005; 96365; 99285-25; A9270-GY; J1644; J7040

== ENCOUNTER 2021-03-10 07:52 | Emergency (ER) | payer BC ==
[2021-03-10] MEDS ORDERED: Sodium Chloride 0.9% 10 ML Syringe FLUSH PRN (08:16)
[2021-03-10] MEDS ORDERED: Aspirin 81 MG Tab.Chew PO ONE (08:17)
[2021-03-10] MEDS ORDERED: Nitroglycerin 0.4 MG Tab.SL SL STA (08:18)
--- NOTE | 2021-03-10 08:26 | EDM.PDOC ---
ED HPI GENERAL MEDICAL PROBLEM - General Stated Complaint: CHEST PAIN Time Seen by Provider: 03/10/21 08:00 Source of Information: Reports: Patient History Limitations: Reports: No Limitations - History of Present Illness INITIAL COMMENTS - FREE TEXT/NARRATIVE: Patient presented to the ED because of chest pain at about 3 AM. She apparently had a nightmare and was upset. the pain is sharp over the sternal area,4/10. there is no N/V, dyspnea or diaphoresis. She just want to be checked because she has a CAD with stent placement. - Related Data Allergies Allergy/AdvReac Type Severity Reaction Status Date / Time cyclobenzaprine HCl Allergy Mild Irritabilit Verified 03/10/21 08:13 [From Flexeril] y ibuprofen Allergy Mild Hives Verified 03/10/21 08:13 morphine Allergy Mild Rash Verified 03/10/21 08:13 codeine Allergy Unknown Chest Verified 03/10/21 08:13 Tightness tramadol Allergy Other Verified 03/10/21 08:13 Home Meds: Home Meds Aspirin 81 mg PO DAILY 10/12/15 [History] Insulin Detemir [Levemir Flextouch] 80 unit SQ BEDTIME 10/12/15 [History] Lisinopril 20 mg PO DAILY 10/12/15 [History] Insulin Aspart [NovoLOG] 10 units SQ BID PRN 02/21/20 [History] Loratadine 10 mg PO DAILY 02/21/20 [History] Metoprolol Succinate 100 mg PO DAILY 10/30/20 [History] Clopidogrel [Plavix] 75 mg PO DAILY 03/10/21 [History] Fluconazole 150 mg PO DAILY PRN 03/10/21 [History] Pantoprazole [ProTONIX] 40 mg PO DAILY 03/10/21 [History] Past Medical History HEENT History: Reports: Other (See Below) Other HEENT History: 10-30-20 lower bottom teeth extracted/sutures in place, placed on Amoxicillin 500mg and oxycodone/apap 5mg prn Cardiovascular History: Reports: Hypertension, [place] (10/2020), PTCA, Other (See Below) (LBBB) Respiratory History: Reports: COPD Gastrointestinal History: Reports: Diverticulosis Genitourinary History: Reports: UTI, Recurrent 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, Musculoskeletal History: Reports: Arthritis, Neck Pain, Chronic Psychiatric History: Reports: Addiction, Anxiety, Depression, Psych Hospitalization(s), Suicide Attempt Other Psychiatric History: ETOH addiction Endocrine/Metabolic History: Reports: Diabetes, Type II, Hypothyroidism, Obesity/BMI 30+ - Infectious Disease History Infectious Disease History: Reports: Measles - Past Surgical History Head Surgeries/Procedures: Reports: None HEENT Surgical History: Reports: Adenoidectomy, Tonsillectomy Cardiovascular Surgical History: Reports: Coronary Artery Stent Respiratory Surgical History: Reports: None GI Surgical History: Reports: Cholecystectomy, Colonoscopy, EGD Female Surgical History: Reports: Hysterectomy, Salpingo-Oophorectomy, Tubal Ligation, Other (See Below) Other Female Surgeries/Procedures: rectocele Endocrine Surgical History: Reports: Other (See Below) Other Endocrine Surgeries/Procedures: blood sugar reader right upper/arm Social & Family History - Family History Family Medical History: No Pertinent Family History - Caffeine Use Caffeine Use: Reports: None Caffeine Use Comment: 1-2 diet sodas daily ED ROS GENERAL - Review of Systems Review Of Systems: See Below Constitutional: Reports: No Symptoms HEENT: Reports: No Symptoms Respiratory: Reports: No Symptoms Cardiovascular: Reports: Chest Pain Endocrine: Reports: No Symptoms GI/Abdominal: Reports: No Symptoms : Reports: No Symptoms Musculoskeletal: Reports: No Symptoms Skin: Reports: No Symptoms Neurological: Reports: No Symptoms ED EXAM, GENERAL - Physical Exam Exam: See Below Exam Limited By: No Limitations General Appearance: Alert, No Apparent Distress Eye Exam: Bilateral Eye: PERRL Ears: Normal External Exam, Normal [place] Nose: Normal Inspection, Normal Mucosa, No Blood Throat/Mouth: Normal Inspection, Normal Lips, Normal Teeth Head: Atraumatic, Normocephalic Neck: Normal Inspection, Supple, Non-Tender, Full Range of Motion Respiratory/Chest: No Respiratory Distress, Lungs Clear, Normal Breath Sounds Cardiovascular: Normal Peripheral Pulses, Regular Rate, Rhythm, No Edema, No Gallop, No JVD, No Murmur, No Rub GI/Abdominal: Normal Bowel Sounds, Soft, Non-Tender, No Organomegaly, No Distention, No Abnormal Bruit Back Exam: Normal Inspection, Full Range of Motion Extremities: Normal Inspection, Normal Range of Motion, Non-Tender, No Pedal Edema, Normal Capillary Refill Neurological: Alert, Oriented, CN II-XII Intact, Normal Cognition, Normal Gait, Normal Reflexes, No Motor/Sensory Deficits Psychiatric: Normal Affect, Normal Mood #1 Interpretation EKG Date: 03/10/21 Time: 07:58 Rhythm: Other (Sinus Tach) Rate (Beats/Min): 119 [place]: Normal P-Wave: Present QRS: LBBB ST-T: Normal QT: Normal Comparison: No Change (Sinus Tach LBBB) EKG Interpretation Comments: NSR No acute changes Course - Vital Signs Text/Narrative:: Lab/EKG result was reviewed and discussed with patient ASA 243 mg po x1-she took 81 mg at home NTG -4.4 mg SL x1 Last Recorded V/S: Last Vital Signs Temp 36.6 C 03/10/21 08:00 Pulse 120 H 03/10/21 08:00 Resp 18 03/10/21 08:00 BP 146/82 H 03/10/21 08:38 Pulse Ox 99 03/10/21 08:00 - Orders/Labs/Meds Orders: Active Orders 24 hr Category Date Time Status Saline Lock Insert [OM.PC] Routine Oth 03/10/21 08:16 Ordered EKG 12 Lead [EK] Routine Ther 03/10/21 08:16 Ordered Labs: Laboratory Tests 03/10/21 03/10/21 03/10/21 Range/Units 08:36 08:36 08:36 WBC 8.6 (3.0-10.3) x10-3/uL RBC 4.48 (3.60-5.20) x10(6)uL Hgb 13.2 (11.4-15.5) g/dL Hct 39.5 (34.2-48.2) % MCV 88.1 (76.7-100.5) fL MCH 29.4 (23.9-33.9) pg MCHC 33.4 (31.9-34.8) g/dL RDW 13.5 (12.3-16.5) % Plt Count 222 (151-488) x10(3)uL MPV 7.8 (7.1-12.4) fL Neut % (Auto) 67.3 (30.8-76.2) % Lymph % (Auto) 24.4 (18.4-52.1) % [place] % (Auto) 4.9 (4.4-15.7) % Eos % (Auto) 2.9 (0.6-8.1) % Baso % (Auto) 0.5 (0.2-1.5) % Neut # (Auto) 5.8 (1.5-6.3) x10-3/uL Lymph # (Auto) 2.1 (1.0-4.4) x10-3/uL [place] # (Auto) 0.4 (0.3-1.0) x10-3/uL Eos # (Auto) 0.2 (0.0-0.8) x10-3/uL Baso # (Auto) 0.0 (0.0-0.1) x10-3/uL PT 11.0 (9.0-11.1) sec INR 1.02 (1.00-1.24) APTT 25.1 (24.4-33.2) SECONDS Sodium 136 (135-145) mmol/L Potassium 3.9 (3.5-5.3) mmol/L Chloride 98 L (100-110) mmol/L Carbon Dioxide 24 (21-32) mmol/L BUN 17 (7-18) mg/dL Creatinine 1.1 H (0.55-1.02) mg/dL Est Cr Clr Drug Dosing TNP Estimated GFR (MDRD) 50 L (>60) BUN/Creatinine Ratio 15.5 (9-20) Glucose 306 H D (80-116) mg/dL Calcium 8.4 L (8.6-10.2) mg/dL Total Bilirubin 0.4 (0.1-1.3) mg/dL AST 38 H D (5-25) IU/L ALT 34 D (12-36) U/L Alkaline Phosphatase 132 H (56-112) IU/L Troponin I (4.0-60.3) pg/mL NT-Pro-B Natriuret Pep (<=125) pg/mL Total Protein 8.6 H (6.0-8.0) g/dL Albumin 3.2 (3.2-4.6) g/dL Globulin 5.4 g/dL Albumin/Globulin Ratio 0.6 03/10/21 Range/Units 08:36 WBC (3.0-10.3) x10-3/uL RBC (3.60-5.20) x10(6)uL Hgb (11.4-15.5) g/dL Hct (34.2-48.2) % MCV (76.7-100.5) fL MCH (23.9-33.9) pg MCHC (31.9-34.8) g/dL RDW (12.3-16.5) % Plt Count (151-488) x10(3)uL MPV (7.1-12.4) fL Neut % (Auto) (30.8-76.2) % Lymph % (Auto) (18.4-52.1) % [place] % (Auto) (4.4-15.7) % Eos % (Auto) (0.6-8.1) % Baso % (Auto) (0.2-1.5) % Neut # (Auto) (1.5-6.3) x10-3/uL Lymph # (Auto) (1.0-4.4) x10-3/uL [place] # (Auto) (0.3-1.0) x10-3/uL Eos # (Auto) (0.0-0.8) x10-3/uL Baso # (Auto) (0.0-0.1) x10-3/uL PT (9.0-11.1) sec INR (1.00-1.24) APTT (24.4-33.2) SECONDS Sodium (135-145) mmol/L Potassium (3.5-5.3) mmol/L Chloride (100-110) mmol/L Carbon Dioxide (21-32) mmol/L BUN (7-18) mg/dL Creatinine (0.55-1.02) mg/dL Est Cr Clr Drug Dosing Estimated GFR (MDRD) (>60) BUN/Creatinine Ratio (9-20) Glucose (80-116) mg/dL Calcium (8.6-10.2) mg/dL Total Bilirubin (0.1-1.3) mg/dL AST (5-25) IU/L ALT (12-36) U/L Alkaline Phosphatase (56-112) IU/L Troponin I < 4.0 L (4.0-60.3) pg/mL NT-Pro-B Natriuret Pep 53 (<=125) pg/mL Total Protein (6.0-8.0) g/dL Albumin (3.2-4.6) g/dL Globulin g/dL Albumin/Globulin Ratio Meds: Medications Discontinued Medications Generic Name Dose Route Start Last Admin Trade Name Linn PRN Reason Stop Dose Admin Aspirin 243 mg 03/10/21 08:17 03/10/21 08:36 Aspirin 81 Mg Tab.Chew PO 03/10/21 08:18 243 mg ONETIME ONE Administration Nitroglycerin 0.4 mg 03/10/21 08:18 03/10/21 08:38 Nitroglycerin 0.4 Mg Tab.Sl SL 03/10/21 08:19 0.4 mg NOW STA Administration Sodium Chloride 10 ml 03/10/21 08:16 03/10/21 08:30 Sodium Chloride 0.9% 10 Ml Syringe FLUSH 10 ml ASDIRECTED PRN Administration Keep Vein Open Departure - Departure Time of Disposition: 10:15 Disposition: Home, Self-Care 01 Condition: Good Clinical Impression: Chest pain, Angina at rest Instructions: Angina, [id number] Referrals: Daniel Schmitt PA [Primary Care Provider] - Forms: ED Department Discharge Additional Instructions: Please read discharge instructions on chest pain Continue your medications 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
[2021-03-10 13:35] VITALS: BP 138/95; PULSE 120
== END 2021-03-10 10:25 | disposition home or self-care (01) ==
LOC: FB.ED 07:52
DX: I25.119 Atherosclerotic heart disease of native coronary artery with unspecified angina pectoris (principal); I44.7 Left bundle-branch block, unspecified; I10 Essential (primary) hypertension; J44.9 Chronic obstructive pulmonary disease, unspecified; M19.90 Unspecified osteoarthritis, unspecified site; E11.9 Type 2 diabetes mellitus without complications; E03.9 Hypothyroidism, unspecified; I25.2 Old myocardial infarction; E66.9 Obesity, unspecified; Z95.5 Presence of coronary angioplasty implant and graft; Z88.8 Allergy status to other drugs, medicaments and biological substances; Z88.6 Allergy status to analgesic agent; Z88.5 Allergy status to narcotic agent; Z79.82 Long term (current) use of aspirin; Z79.4 Long term (current) use of insulin; Z79.02 Long term (current) use of antithrombotics/antiplatelets; Z79.899 Other long term (current) drug therapy
CPT/HCPCS: 36415; 80053; 83880; 84484; 85025; 85610; 85730; 93005; 99285; A9270

== ENCOUNTER 2021-04-03 16:35 | Emergency (ER) | payer BC ==
[2021-04-03] MEDS ORDERED: Alum Hydroxide/Mag Hydroxide 30 ML, Lidocaine 2% 15 ML PO ONE ×2 (17:12)
--- NOTE | 2021-04-03 17:20 | EDM.PDOC ---
ED HPI GENERAL MEDICAL PROBLEM - General Stated Complaint: CHEST PAIN Time Seen by Provider: 04/03/21 16:40 Source of Information: Reports: Patient, Family History Limitations: Reports: No Limitations - History of Present Illness INITIAL COMMENTS - FREE TEXT/NARRATIVE: c/o chest fluttering x 12h nonspecific chest fluttering, no tachycardia, vague minor chest discomfort, mainly in epigastric area, eating okay feels better lying on L side took APAP x 2 at noon without benefit no NTG or other meds had first stent 11-27-20, did okay for 3 months with CP off and on, then had daily vague CP x 1m in February and "not feeling well" 2nd stent placed 2d ago, pt did not know if the cath 2d ago was different from 4m ago no change in meds with new stent at [facility] h/o GERD, on PPI, took no AA today EKG ow with LBBB and no ST changes, no change c/w 03-10-21, SR 89 her with sig other - Related Data Allergies Allergy/AdvReac Type Severity Reaction Status Date / Time cyclobenzaprine HCl Allergy Mild Irritabilit Verified 03/10/21 08:13 [From Flexeril] y ibuprofen Allergy Mild Hives Verified 03/10/21 08:13 morphine Allergy Mild Rash Verified 03/10/21 08:13 codeine Allergy Unknown Chest Verified 03/10/21 08:13 Tightness tramadol Allergy Other Verified 03/10/21 08:13 Home Meds: Home Meds Aspirin 81 mg PO DAILY 10/12/15 [History] Insulin Detemir [Levemir Flextouch] 80 unit SQ BEDTIME 10/12/15 [History] Lisinopril 20 mg PO DAILY 10/12/15 [History] Insulin Aspart [NovoLOG] 10 units SQ BID PRN 02/21/20 [History] Loratadine 10 mg PO DAILY 02/21/20 [History] Metoprolol Succinate 100 mg PO DAILY 10/30/20 [History] Clopidogrel [Plavix] 75 mg PO DAILY 03/10/21 [History] Fluconazole 150 mg PO DAILY PRN 03/10/21 [History] Pantoprazole [ProTONIX] 40 mg PO DAILY 03/10/21 [History] Past Medical History HEENT History: Reports: Other (See Below) Other HEENT History: 10-30-20 lower bottom teeth extracted/sutures in place, placed on Amoxicillin 500mg and oxycodone/apap 5mg prn Cardiovascular History: Reports: Hypertension, [place], PTCA, Other (See Below) Respiratory History: Reports: COPD Gastrointestinal History: Reports: Diverticulosis Genitourinary History: Reports: UTI, Recurrent 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, Musculoskeletal History: Reports: Arthritis, Neck Pain, Chronic Psychiatric History: Reports: Addiction, Anxiety, Depression, Psych Hospitalization(s), Suicide Attempt Other Psychiatric History: ETOH addiction Endocrine/Metabolic History: Reports: Diabetes, Type II, Hypothyroidism, Obesity/BMI 30+ - Infectious Disease History Infectious Disease History: Reports: Measles - Past Surgical History Head Surgeries/Procedures: Reports: None HEENT Surgical History: Reports: Adenoidectomy, Tonsillectomy Cardiovascular Surgical History: Reports: Coronary Artery Stent Respiratory Surgical History: Reports: None GI Surgical History: Reports: Cholecystectomy, Colonoscopy, EGD Female Surgical History: Reports: Hysterectomy, Salpingo-Oophorectomy, Tubal Ligation, Other (See Below) Other Female Surgeries/Procedures: rectocele Endocrine Surgical History: Reports: Other (See Below) Other Endocrine Surgeries/Procedures: blood sugar reader right upper/arm Social & Family History - Family History Family Medical History: No Pertinent Family History - Caffeine Use Caffeine Use: Reports: Coffee Caffeine Use Comment: 1-2 diet sodas daily ED ROS GENERAL - Review of Systems Review Of Systems: See Below Constitutional: Reports: No Symptoms HEENT: Reports: No Symptoms Respiratory: Reports: No Symptoms Cardiovascular: Reports: Chest Pain, Palpitations Endocrine: Reports: No Symptoms GI/Abdominal: Reports: No Symptoms : Reports: No Symptoms Musculoskeletal: Reports: No Symptoms Skin: Reports: No Symptoms Neurological: Reports: No Symptoms Psychiatric: Reports: No Symptoms Hematologic/Lymphatic: Reports: No Symptoms Immunologic: Reports: No Symptoms ED EXAM, GENERAL - Physical Exam Exam: See Below Exam Limited By: Uncooperative General Appearance: WD/WN, Anxious, Other (alert, nonill, anxious) Ears: Hearing Grossly Normal Nose: Normal Inspection Throat/Mouth: Normal Inspection, Normal Voice, No Airway Compromise Head: Atraumatic Neck: Normal Inspection, Supple Respiratory/Chest: No Respiratory Distress, Lungs Clear, No Accessory Muscle Use, Chest Non-Tender Cardiovascular: Regular Rate, Rhythm, No Murmur, Other (trace pretib edema b/l) GI/Abdominal: Soft, Non-Tender, No Distention Back Exam: Normal Inspection, Full Range of Motion Extremities: Normal Inspection, Normal Range of Motion, Slow Capillary Refill Neurological: Alert, Oriented, CN II-XII Intact, Normal Cognition, No Motor/Sensory Deficits Psychiatric: Normal Affect, Normal Mood Skin Exam: Warm, Dry, Intact, Normal Color, No Rash Lymphatic: No Adenopathy #1 Interpretation EKG Interpretation Comments: LBBB, no change c/e 03-10-21, no ST change Course - Orders/Labs/Meds Labs: Laboratory Tests 04/03/21 04/03/21 04/03/21 Range/Units 17:25 17:25 17:25 WBC 6.1 (3.0-10.3) x10-3/uL RBC 4.30 (3.60-5.20) x10(6)uL Hgb 12.4 (11.4-15.5) g/dL Hct 37.5 (34.2-48.2) % MCV 87.2 (76.7-100.5) fL MCH 28.9 (23.9-33.9) pg MCHC 33.2 (31.9-34.8) g/dL RDW 13.3 (12.3-16.5) % Plt Count 202 (151-488) x10(3)uL MPV 7.9 (7.1-12.4) fL Neut % (Auto) 56.6 (30.8-76.2) % Lymph % (Auto) 33.0 (18.4-52.1) % Fisher % (Auto) 6.8 (4.4-15.7) % Eos % (Auto) 3.1 (0.6-8.1) % Baso % (Auto) 0.5 (0.2-1.5) % Neut # (Auto) 3.4 (1.5-6.3) x10-3/uL Lymph # (Auto) 2.0 (1.0-4.4) x10-3/uL Fisher # (Auto) 0.4 (0.3-1.0) x10-3/uL Eos # (Auto) 0.2 (0.0-0.8) x10-3/uL Baso # (Auto) 0.0 (0.0-0.1) x10-3/uL Sodium 134 L (135-145) mmol/L Potassium 4.5 (3.5-5.3) mmol/L Chloride 96 L (100-110) mmol/L Carbon Dioxide 29 (21-32) mmol/L BUN 13 (7-18) mg/dL Creatinine 1.2 H (0.55-1.02) mg/dL Est Cr Clr Drug Dosing TNP Estimated GFR (MDRD) 46 L (>60) BUN/Creatinine Ratio 10.8 (9-20) Glucose 347 H (80-116) mg/dL Calcium 8.7 (8.6-10.2) mg/dL Total Bilirubin 0.3 (0.1-1.3) mg/dL AST 35 H (5-25) IU/L ALT 33 (12-36) U/L Alkaline Phosphatase 139 H (56-112) IU/L Troponin I 8.2 (4.0-60.3) pg/mL C-Reactive Protein 1.4 H (0.5-0.9) mg/dL Total Protein 8.4 H (6.0-8.0) g/dL Albumin 3.0 L (3.2-4.6) g/dL Globulin 5.4 g/dL Albumin/Globulin Ratio 0.6 Urine Color (YELLOW) Urine Appearance (CLEAR) Urine pH (5.0-6.5) Ur Specific [place] (1.010-1.025) Urine Protein (NEGATIVE) mg/dL Urine Glucose (UA) (NORMAL) mg/dL Urine Ketones (NEGATIVE) mg/dL Urine Occult Blood (NEGATIVE) Urine Nitrite (NEGATIVE) Urine Bilirubin (NEGATIVE) Urine Urobilinogen (NEGATIVE) mg/dL Ur Leukocyte Esterase (NEGATIVE) Urine RBC (0-5) Urine WBC (0-5) Ur Epithelial Cells Urine Bacteria (NS) 04/03/21 Range/Units 18:45 WBC (3.0-10.3) x10-3/uL RBC (3.60-5.20) x10(6)uL Hgb (11.4-15.5) g/dL Hct (34.2-48.2) % MCV (76.7-100.5) fL MCH (23.9-33.9) pg MCHC (31.9-34.8) g/dL RDW (12.3-16.5) % Plt Count (151-488) x10(3)uL MPV (7.1-12.4) fL Neut % (Auto) (30.8-76.2) % Lymph % (Auto) (18.4-52.1) % Fisher % (Auto) (4.4-15.7) % Eos % (Auto) (0.6-8.1) % Baso % (Auto) (0.2-1.5) % Neut # (Auto) (1.5-6.3) x10-3/uL Lymph # (Auto) (1.0-4.4) x10-3/uL Fisher # (Auto) (0.3-1.0) x10-3/uL Eos # (Auto) (0.0-0.8) x10-3/uL Baso # (Auto) (0.0-0.1) x10-3/uL Sodium (135-145) mmol/L Potassium (3.5-5.3) mmol/L Chloride (100-110) mmol/L Carbon Dioxide (21-32) mmol/L BUN (7-18) mg/dL Creatinine (0.55-1.02) mg/dL Est Cr Clr Drug Dosing Estimated GFR (MDRD) (>60) BUN/Creatinine Ratio (9-20) Glucose (80-116) mg/dL Calcium (8.6-10.2) mg/dL Total Bilirubin (0.1-1.3) mg/dL AST (5-25) IU/L ALT (12-36) U/L Alkaline Phosphatase (56-112) IU/L Troponin I (4.0-60.3) pg/mL C-Reactive Protein (0.5-0.9) mg/dL Total Protein (6.0-8.0) g/dL Albumin (3.2-4.6) g/dL Globulin g/dL Albumin/Globulin Ratio Urine Color Yellow (YELLOW) Urine Appearance Clear (CLEAR) Urine pH 5.0 (5.0-6.5) Ur Specific [place] 1.025 (1.010-1.025) Urine Protein 100 H (NEGATIVE) mg/dL Urine Glucose (UA) >1000 H (NORMAL) mg/dL Urine Ketones Negative (NEGATIVE) mg/dL Urine Occult Blood Negative (NEGATIVE) Urine Nitrite Negative (NEGATIVE) Urine Bilirubin Negative (NEGATIVE) Urine Urobilinogen Normal (NEGATIVE) mg/dL Ur Leukocyte Esterase Negative (NEGATIVE) Urine RBC 0-5 (0-5) Urine WBC 0-5 (0-5) Ur Epithelial Cells Occasional Urine Bacteria Rare H (NS) Meds: Medications Discontinued Medications Generic Name Dose Route Start Last Admin Trade Name Freq PRN Reason Stop Dose Admin Al Hydroxide/Mg Hydroxide 30 0 ml 04/03/21 17:12 04/03/21 18:00 ml/ Lidocaine HCl 15 ml PO 04/03/21 17:13 45 ml ONETIME ONE Administration - Re-Assessments/Exams Free Text/Narrative Re-Assessment/Exam: 04/03/21 19:10 labs neg glucose 347 and high TP 8.4 yet no clinical evidence of infection alb 3.0 some improvement with GI cocktail trop and EKG neg, pt is worried, which is as much concern as any Departure - Departure Time of Disposition: 19:07 Disposition: Home, Self-Care 01 Condition: Good Clinical Impression: Non-cardiac chest pain, GERD (gastroesophageal reflux disease) Instructions: Chest Wall Pain, Gastroesophageal Reflux Disease, Adult Additional Instructions: Continue your regular medications. For acid reflux, take liquid antacid 30 ml every 4 hours as needed. For additional chest discomfort, use moist heat for 10 minutes every 2 hours as needed. Get adequate rest. Continue usual activities. See Daniel Schmitt in 4 days as scheduled. Call or return to ED if there are additional concerns.
[2021-04-03 20:18] VITALS: BP 148/80; PULSE 91
== END 2021-04-03 19:25 | disposition home or self-care (01) ==
LOC: FB.ED 16:35
DX: K21.9 Gastro-esophageal reflux disease without esophagitis (principal); I10 Essential (primary) hypertension; I25.2 Old myocardial infarction; Z79.82 Long term (current) use of aspirin; E11.9 Type 2 diabetes mellitus without complications; E03.9 Hypothyroidism, unspecified; E66.9 Obesity, unspecified; Z88.5 Allergy status to narcotic agent; Z88.6 Allergy status to analgesic agent; Z79.899 Other long term (current) drug therapy; Z88.8 Allergy status to other drugs, medicaments and biological substances; Z79.02 Long term (current) use of antithrombotics/antiplatelets; Z68.28 Body mass index [BMI] 28.0-28.9, adult
CPT/HCPCS: 36415; 80053; 81001; 84484; 85025; 86140; 93005; 99285; A9270

== ENCOUNTER 2021-05-21 08:19 | Emergency (ER) | payer BC ==
[2021-05-21 08:51] VITALS: BP 169/93; PULSE 109
[2021-05-21] MEDS ORDERED: Acetaminophen/oxyCODONE 325-5 MG Tab PO PRN (08:59)
[2021-05-21] MEDS ORDERED: Alum Hydroxide/Mag Hydroxide 15 ML, Lidocaine 2% 15 ML PO ONE ×2 (10:01)
--- NOTE | 2021-05-21 10:48 | EDM.PDOC ---
ED HPI GENERAL MEDICAL PROBLEM - General Chief Complaint: General Stated Complaint: TACHYCARDIA Time Seen by Provider: 05/21/21 08:35 Source of Information: Reports: Patient, Family History Limitations: Reports: No Limitations - History of Present Illness INITIAL COMMENTS - FREE TEXT/NARRATIVE: Patient presented to the ED from the cardiac rehab because of tachycardia-HR of 10-120. there is no chest pain, dizziness, dyspnea. She also c/o epigastric pain, burning type for 1 week. She also mentioned that lately she has been havin bilateral hip pain which is chronic and is taking tylenol. there is no recent trauma or injury. Chest Pain Score (Numeric/FACES): 4 - Related Data Allergies Allergy/AdvReac Type Severity Reaction Status Date / Time cyclobenzaprine HCl Allergy Mild Irritabilit Verified 04/03/21 19:50 [From Flexeril] y ibuprofen Allergy Mild Hives Verified 04/03/21 19:50 morphine Allergy Mild Rash Verified 04/03/21 19:50 codeine Allergy Unknown Chest Verified 04/03/21 19:50 Tightness tramadol Allergy Other Verified 04/03/21 19:50 Home Meds: Home Meds Aspirin 81 mg PO DAILY 10/12/15 [History] Insulin Detemir [Levemir Flextouch] 80 unit SQ BEDTIME 10/12/15 [History] Lisinopril 20 mg PO DAILY 10/12/15 [History] Insulin Aspart [NovoLOG] 10 units SQ BID PRN 02/21/20 [History] Loratadine 10 mg PO DAILY 02/21/20 [History] Metoprolol Succinate 100 mg PO DAILY 10/30/20 [History] Clopidogrel [Plavix] 75 mg PO DAILY 03/10/21 [History] Fluconazole 150 mg PO DAILY PRN 03/10/21 [History] Pantoprazole [ProTONIX] 40 mg PO DAILY 03/10/21 [History] Acetaminophen/oxyCODONE [Percocet 325-5 MG] 1 each PO Q4H PRN #10 tab 05/21/21 [Rx] Past Medical History HEENT History: Reports: Other (See Below) Other HEENT History: 10-30-20 lower bottom teeth extracted/sutures in place, placed on Amoxicillin 500mg and oxycodone/apap 5mg prn Cardiovascular History: Reports: Hypertension, [place], PTCA, Stents, Other (See Below) Respiratory History: Reports: COPD Gastrointestinal History: Reports: Diverticulosis Genitourinary History: Reports: UTI, Recurrent 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, Musculoskeletal History: Reports: Arthritis, Neck Pain, Chronic Psychiatric History: Reports: Addiction, Anxiety, Depression, Psych Hospitalization(s), Suicide Attempt Other Psychiatric History: ETOH addiction Endocrine/Metabolic History: Reports: Diabetes, Type II, Hypothyroidism, Obesity/BMI 30+ - Infectious Disease History Infectious Disease History: Reports: Measles - Past Surgical History Head Surgeries/Procedures: Reports: None HEENT Surgical History: Reports: Adenoidectomy, Tonsillectomy Cardiovascular Surgical History: Reports: Coronary Artery Stent Respiratory Surgical History: Reports: None GI Surgical History: Reports: Cholecystectomy, Colonoscopy, EGD Female Surgical History: Reports: Hysterectomy, Salpingo-Oophorectomy, Tubal Ligation, Other (See Below) Other Female Surgeries/Procedures: rectocele Endocrine Surgical History: Reports: Other (See Below) Other Endocrine Surgeries/Procedures: blood sugar reader right upper/arm Social & Family History - Family History Family Medical History: No Pertinent Family History - Caffeine Use Caffeine Use: Reports: None Caffeine Use Comment: 1-2 diet sodas daily ED ROS GENERAL - Review of Systems Review Of Systems: See Below Constitutional: Reports: No Symptoms HEENT: Reports: No Symptoms Respiratory: Reports: No Symptoms Cardiovascular: Reports: Palpitations Endocrine: Reports: No Symptoms, Polyuria GI/Abdominal: Reports: Abdominal Pain : Reports: No Symptoms Musculoskeletal: Reports: Joint Pain Neurological: Reports: No Symptoms Psychiatric: Reports: No Symptoms ED EXAM, GENERAL - Physical Exam Exam: See Below Exam Limited By: No Limitations General Appearance: Alert, No Apparent Distress Ears: Normal External Exam, Normal Canal Nose: Normal Inspection, Normal Mucosa, No Blood Throat/Mouth: Normal Inspection, Normal Lips, Normal Teeth, Normal Gums Head: Atraumatic, Normocephalic Neck: Normal Inspection, Supple, Non-Tender, Full Range of Motion Respiratory/Chest: No Respiratory Distress, Lungs Clear, Normal Breath Sounds Cardiovascular: Normal Peripheral Pulses, Tachycardia GI/Abdominal: Normal Bowel Sounds, Soft, Non-Tender Back Exam: Normal Inspection Extremities: Normal Inspection, Normal Range of Motion, Non-Tender, Other (bilatera hip T) Neurological: Alert, Oriented, CN II-XII Intact Psychiatric: Normal Affect, Normal Mood Course - Vital Signs Text/Narrative:: GI cocktail 1 po x1 Percocet 5 mg, 2 po x1 Last Recorded V/S: Last Vital Signs Temp Pulse 109 H 05/21/21 08:30 Resp 18 05/21/21 08:30 BP 169/93 H 05/21/21 08:30 Pulse Ox 18 L 05/21/21 08:30 - Orders/Labs/Meds Labs: Laboratory Tests 05/21/21 Range/Units 08:40 POC Glucose 235 H (80-116) mg/dL Meds: Medications Discontinued Medications Generic Name Dose Route Start Last Admin Trade Name Freq PRN Reason Stop Dose Admin Al Hydroxide/Mg Hydroxide 15 0 ml 05/21/21 10:01 05/21/21 10:06 ml/ Lidocaine HCl 15 ml PO 05/21/21 10:02 30 ml ONETIME ONE Administration Oxycodone/Acetaminophen 2 tab 05/21/21 08:59 05/21/21 09:07 Acetaminophen/Oxycodone 325-5 Mg Tab PO 2 tab ONETIME PRN Administration Pain Departure - Departure Time of Disposition: 11:00 Disposition: Home, Self-Care 01 Condition: Good Clinical Impression: GERD (gastroesophageal reflux disease), Hip pain - Discharge Information Prescriptions: Acetaminophen/oxyCODONE [Percocet 325-5 MG] 1 each PO Q4H PRN #10 tab PRN Reason: Pain Instructions: Hip Pain, Food Choices for Gastroesophageal Reflux Disease, Child, [id number] Referrals: Jeremy Anne MD [Primary Care Provider] - Forms: ED Department Discharge Additional Instructions: Please read discharge instructions on GERD-take your newly prescribed medicine daily Read the list of food and beverages that can cause flare up of acid reflux Percocet/oxycodone 5 mg, 1 tablet every 4 hours as needed for pain Follow up as needed Sepsis Event Note (ED) - Evaluation Sepsis Screening Result: No Definite Risk - Focused Exam Vital Signs: Vital Signs Pulse Resp BP Pulse Ox 05/21/21 08:30 109 H 18 169/93 H 18 L
--- NOTE | 2021-05-21 13:19 | PCM.EKG ---
#1 Interpretation EKG Date: 05/21/21 Time: 08:22 Rhythm: Other (sinus tach) Rate (Beats/Min): 108 [place]: Normal QRS: LBBB ST-T: Normal QT: Normal Comparison: No Change EKG Interpretation Comments: Sinus Tach LBBB
== END 2021-05-21 11:02 | disposition home or self-care (01) ==
LOC: FB.ED 08:19
DX: K21.9 Gastro-esophageal reflux disease without esophagitis (principal); M25.551 Pain in right hip; M25.552 Pain in left hip; I10 Essential (primary) hypertension; I25.2 Old myocardial infarction; J44.9 Chronic obstructive pulmonary disease, unspecified; E03.9 Hypothyroidism, unspecified; E66.9 Obesity, unspecified; Z68.30 Body mass index [BMI] 30.0-30.9, adult; Z79.82 Long term (current) use of aspirin; Z79.4 Long term (current) use of insulin; Z79.899 Other long term (current) drug therapy; Z88.5 Allergy status to narcotic agent; Z88.6 Allergy status to analgesic agent; Z88.8 Allergy status to other drugs, medicaments and biological substances
CPT/HCPCS: 82947; 93005; 93010; 99283; 99285-25; A9270-GY

== ENCOUNTER 2021-08-25 18:54 | Emergency (ER) | payer BC ==
[2021-08-25] MEDS ORDERED: Acetaminophen/HYDROcodone 325-5 MG Tab PO ONE (18:55)
[2021-08-25] MEDS ORDERED: Ondansetron 4 MG Tab.DIS PO ONE (18:55)
[2021-08-25] MEDS: Sodium Chloride 0.9% 10 ML Syringe FLUSH PRN ×2 (19:10→22:44)
[2021-08-25] MEDS ORDERED: HYDROmorphone 2 MG/ML SDV IVPUSH ONE (19:26)
[2021-08-25] MEDS ORDERED: Ondansetron 4 MG/2 ML SDV IVPUSH STA ×2 (19:26→21:13)
[2021-08-25] MEDS ORDERED: Sodium Chloride 0.9% 1,000 ML IV SCH (19:30)
[2021-08-25] MEDS ORDERED: Iopamidol 755 MG/ML 150 ML Bottle IV ONE (20:21)
[2021-08-25] MEDS ORDERED: HYDROmorphone 2 MG/ML SDV ONE (21:20)
[2021-08-25] MEDS ORDERED: HYDROmorphone 2 MG/ML SDV IM STA (21:20)
[2021-08-25] MEDS ORDERED: HYDROmorphone 2 MG/ML SDV IVPUSH STA (21:22)
[2021-08-25] MEDS ORDERED: Glucagon,Human Recombinant 1 MG Vial IM PRN ×2 (21:26→21:32)
[2021-08-25] MEDS ORDERED: 50% Dextrose in Water 50 ML Syringe IVPUSH PRN ×2 (21:26→21:32)
[2021-08-25] MEDS ORDERED: Insulin Regular, Human 100 Units/ML 3 ML Vial IV ONE (21:26)
[2021-08-25] MEDS ORDERED: Insulin Regular, Human 100 Units/ML 3 ML Vial SUBCUT STA (21:32)
[2021-08-25] MEDS ORDERED: Morphine 4 MG/ML VIAL IVPUSH STA (21:55)
[2021-08-25] MEDS ORDERED: Morphine 2 MG/ML SYRINGE ONE (21:57)
[2021-08-25] MEDS ORDERED: Morphine 2 MG/ML SYRINGE IVPUSH ONE (21:58)
--- NOTE | 2021-08-25 22:10 | EDM.PDOC ---
ED HPI GENERAL MEDICAL PROBLEM - General Chief Complaint: Abdominal Pain Stated Complaint: STOMACHE ACHE Time Seen by Provider: 08/25/21 19:00 Source of Information: Reports: Patient, Family History Limitations: Reports: No Limitations - History of Present Illness INITIAL COMMENTS - FREE TEXT/NARRATIVE: Patient presented to the ED because of abdominal pain over the RUQ and epig astric area. The pain is sharp, constant,10/10 with associated nausea but no vomiting. There is no changes in bowel movements or urinary symptoms. There is no fever, chills, cough/cold symptoms. Right Upper Abdominal Pain Score (Numeric/FACES): 7 - Related Data Allergies Allergy/AdvReac Type Severity Reaction Status Date / Time cyclobenzaprine HCl Allergy Mild Irritabilit Verified 08/25/21 20:23 [From Flexeril] y ibuprofen Allergy Mild Hives Verified 08/25/21 20:23 morphine Allergy Mild Rash Verified 04/03/21 19:50 codeine Allergy Unknown Chest Verified 08/25/21 20:23 Tightness tramadol Allergy Other Verified 08/25/21 20:23 Home Meds: Home Meds Aspirin 81 mg PO DAILY 10/12/15 [History] Insulin Detemir [Levemir Flextouch] 80 unit SQ BEDTIME 10/12/15 [History] Lisinopril 20 mg PO DAILY 10/12/15 [History] Insulin Aspart [NovoLOG] 10 units SQ BID PRN 02/21/20 [History] Loratadine 10 mg PO DAILY 02/21/20 [History] Metoprolol Succinate 100 mg PO DAILY 10/30/20 [History] Clopidogrel [Plavix] 75 mg PO DAILY 03/10/21 [History] Fluconazole 150 mg PO DAILY PRN 03/10/21 [History] Pantoprazole [ProTONIX] 40 mg PO DAILY 03/10/21 [History] Acetaminophen/oxyCODONE [Percocet 325-5 MG] 1 each PO Q4H PRN #10 tab 05/21/21 [Rx] Acetaminophen/HYDROcodone [HYDROcodone-Acetaminophen 5-325 MG *] 1 tab PO Q4H PRN #15 tab 08/25/21 [Rx] Ondansetron [Zofran ODT] 4 mg PO Q4H PRN #5 tab.dis 08/25/21 [Rx] Past Medical History HEENT History: Reports: Other (See Below) Other HEENT History: 12 lower bottom teeth extracted/sutures in place, placed on Amoxicillin 500mg and oxycodone/apap 5mg prn Cardiovascular History: Reports: Hypertension, [place], PTCA, Stents, Other (See Below) Respiratory History: Reports: COPD Gastrointestinal History: Reports: Diverticulosis Genitourinary History: Reports: UTI, Recurrent 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, Musculoskeletal History: Reports: Arthritis, Neck Pain, Chronic Psychiatric History: Reports: Addiction, Anxiety, Depression, Psych Hospitalization(s), Suicide Attempt Other Psychiatric History: ETOH addiction Endocrine/Metabolic History: Reports: Diabetes, Type II, Hypothyroidism, Obesity/BMI 30+ - Infectious Disease History Infectious Disease History: Reports: Measles - Past Surgical History Head Surgeries/Procedures: Reports: None HEENT Surgical History: Reports: Adenoidectomy, Tonsillectomy Cardiovascular Surgical History: Reports: Coronary Artery Stent Respiratory Surgical History: Reports: None GI Surgical History: Reports: Cholecystectomy, Colonoscopy, EGD Female Surgical History: Reports: Hysterectomy, Salpingo-Oophorectomy, Tubal Ligation, Other (See Below) Other Female Surgeries/Procedures: rectocele Endocrine Surgical History: Reports: Other (See Below) Other Endocrine Surgeries/Procedures: blood sugar reader right upper/arm Social & Family History - Family History Family Medical History: No Pertinent Family History - Tobacco Use Tobacco Use Status *Q: Former Tobacco User Used Tobacco, but Quit: Yes Month/Year Tobacco Last Used: 11/2014 - Caffeine Use Caffeine Use: Reports: None Caffeine Use Comment: 1-2 diet sodas daily - Recreational Drug Use Recreational Drug Use: No ED ROS GENERAL - Review of Systems Review Of Systems: See Below Constitutional: Reports: No Symptoms HEENT: Reports: No Symptoms Respiratory: Reports: No Symptoms Cardiovascular: Reports: No Symptoms Endocrine: Reports: No Symptoms GI/Abdominal: Reports: Abdominal Pain, Nausea : Reports: No Symptoms Musculoskeletal: Reports: No Symptoms Skin: Reports: No Symptoms Neurological: Reports: No Symptoms ED EXAM, GI/ABD - Physical Exam Exam: See Below Exam Limited By: No Limitations General Appearance: Alert, No Apparent Distress Ears: Normal External Exam, Normal Canal Nose: Normal Inspection, Normal Mucosa Throat/Mouth: Normal Inspection, Normal Lips, Normal Teeth Head: Atraumatic, Normocephalic Neck: Normal Inspection, Supple, Non-Tender, Full Range of Motion Respiratory/Chest: No Respiratory Distress, Lungs Clear, Normal Breath Sounds Cardiovascular: Normal Peripheral Pulses, Regular Rate, Rhythm, No Edema, No Gallop, No JVD, No Murmur, No Rub GI/Abdominal Exam: Normal Bowel Sounds, Soft, Other (RUQ tenderness and epigastric tenderness) Back Exam: Normal Inspection, Full Range of Motion Extremities: Normal Inspection, Normal Range of Motion, Non-Tender, No Pedal Edema, Normal Capillary Refill Neurological: Alert, Oriented, CN II-XII Intact, Normal Cognition, Normal Gait, Normal Reflexes, No Motor/Sensory Deficits Course - Vital Signs Text/Narrative:: Lab and Ct result was reviewed and discussed with patient Last Recorded V/S: Last Vital Signs Temp 36.4 C 08/25/21 18:54 Pulse 98 08/25/21 23:15 Resp 18 08/25/21 23:15 BP 165/79 H 08/25/21 23:15 Pulse Ox 96 08/25/21 23:15 - Orders/Labs/Meds Labs: Laboratory Tests 08/25/21 08/25/21 08/25/21 Range/Units 19:30 19:30 19:30 WBC 9.8 (3.0-10.3) x10-3/uL RBC 4.65 (3.60-5.20) x10(6)uL Hgb 12.8 (11.4-15.5) g/dL Hct 39.3 (34.2-48.2) % MCV 84.6 (76.7-100.5) fL MCH 27.5 (23.9-33.9) pg MCHC 32.4 (31.9-34.8) g/dL RDW 13.7 (12.3-16.5) % Plt Count 279 (151-488) x10(3)uL MPV 7.8 (7.1-12.4) fL Neut % (Auto) 54.9 (30.8-76.2) % Lymph % (Auto) 35.6 (18.4-52.1) % [place] % (Auto) 6.8 (4.4-15.7) % Eos % (Auto) 2.2 (0.6-8.1) % Baso % (Auto) 0.5 (0.2-1.5) % Neut # (Auto) 5.4 (1.5-6.3) x10-3/uL Lymph # (Auto) 3.5 (1.0-4.4) x10-3/uL [place] # (Auto) 0.7 (0.3-1.0) x10-3/uL Eos # (Auto) 0.2 (0.0-0.8) x10-3/uL Baso # (Auto) 0.1 (0.0-0.1) x10-3/uL Sodium 132 L (135-145) mmol/L Potassium 4.2 (3.5-5.3) mmol/L Chloride 96 L (100-110) mmol/L Carbon Dioxide 25 (21-32) mmol/L BUN 29 H D (7-18) mg/dL Creatinine 1.5 H (0.55-1.02) mg/dL Est Cr Clr Drug Dosing 33.58 mL/min Estimated GFR (MDRD) 35 L (>60) BUN/Creatinine Ratio 19.3 (9-20) Glucose 432 H* D (80-116) mg/dL POC Glucose (80-116) mg/dL Calcium 8.5 L (8.6-10.2) mg/dL Total Bilirubin 0.5 (0.1-1.3) mg/dL AST 34 H (5-25) IU/L ALT 26 D (12-36) U/L Alkaline Phosphatase 129 H (56-112) IU/L Troponin I (4.0-60.3) pg/mL Total Protein 8.9 H (6.0-8.0) g/dL Albumin 3.3 (3.2-4.6) g/dL Globulin 5.6 g/dL Albumin/Globulin Ratio 0.6 Amylase 34 (25-115) U/L Lipase 113 (73-393) U/L Urine Color (YELLOW) Urine Appearance (CLEAR) Urine pH (5.0-6.5) Ur Specific [place] (1.010-1.025) Urine Protein (NEGATIVE) mg/dL Urine Glucose (UA) (NORMAL) mg/dL Urine Ketones (NEGATIVE) mg/dL Urine Occult Blood (NEGATIVE) Urine Nitrite (NEGATIVE) Urine Bilirubin (NEGATIVE) Urine Urobilinogen (NEGATIVE) mg/dL Ur Leukocyte Esterase (NEGATIVE) U Hyaline Cast (Auto) (NS) Urine RBC (0-5) Urine WBC (0-5) Ur Squamous Epith Cells (NS,R,O) Urine Bacteria (NS) 08/25/21 08/25/21 08/25/21 Range/Units 19:30 19:35 21:30 WBC (3.0-10.3) x10-3/uL RBC (3.60-5.20) x10(6)uL Hgb (11.4-15.5) g/dL Hct (34.2-48.2) % MCV (76.7-100.5) fL MCH (23.9-33.9) pg MCHC (31.9-34.8) g/dL RDW (12.3-16.5) % Plt Count (151-488) x10(3)uL MPV (7.1-12.4) fL Neut % (Auto) (30.8-76.2) % Lymph % (Auto) (18.4-52.1) % [place] % (Auto) (4.4-15.7) % Eos % (Auto) (0.6-8.1) % Baso % (Auto) (0.2-1.5) % Neut # (Auto) (1.5-6.3) x10-3/uL Lymph # (Auto) (1.0-4.4) x10-3/uL [place] # (Auto) (0.3-1.0) x10-3/uL Eos # (Auto) (0.0-0.8) x10-3/uL Baso # (Auto) (0.0-0.1) x10-3/uL Sodium (135-145) mmol/L Potassium (3.5-5.3) mmol/L Chloride (100-110) mmol/L Carbon Dioxide (21-32) mmol/L BUN (7-18) mg/dL Creatinine (0.55-1.02) mg/dL Est Cr Clr Drug Dosing mL/min Estimated GFR (MDRD) (>60) BUN/Creatinine Ratio (9-20) Glucose (80-116) mg/dL POC Glucose 313 H (80-116) mg/dL Calcium (8.6-10.2) mg/dL Total Bilirubin (0.1-1.3) mg/dL AST (5-25) IU/L ALT (12-36) U/L Alkaline Phosphatase (56-112) IU/L Troponin I 17.3 (4.0-60.3) pg/mL Total Protein (6.0-8.0) g/dL Albumin (3.2-4.6) g/dL Globulin g/dL Albumin/Globulin Ratio Amylase (25-115) U/L Lipase (73-393) U/L Urine Color Yellow (YELLOW) Urine Appearance Clear (CLEAR) Urine pH 5.0 (5.0-6.5) Ur Specific [place] 1.025 (1.010-1.025) Urine Protein 500 H (NEGATIVE) mg/dL Urine Glucose (UA) >1000 H (NORMAL) mg/dL Urine Ketones Negative (NEGATIVE) mg/dL Urine Occult Blood Negative (NEGATIVE) Urine Nitrite Negative (NEGATIVE) Urine Bilirubin Negative (NEGATIVE) Urine Urobilinogen Normal (NEGATIVE) mg/dL Ur Leukocyte Esterase Small H (NEGATIVE) U Hyaline Cast (Auto) Many H (NS) Urine RBC 0-5 (0-5) Urine WBC 0-5 (0-5) Ur Squamous Epith Cells Occasional (NS,R,O) Urine Bacteria Rare H (NS) 08/25/ Range/Units 22:27 WBC (3.0-10.3) x10-3/uL RBC (3.60-5.20) x10(6)uL Hgb (11.4-15.5) g/dL Hct (34.2-48.2) % MCV (76.7-100.5) fL MCH (23.9-33.9) pg MCHC (31.9-34.8) g/dL RDW (12.3-16.5) % Plt Count (151-488) x10(3)uL MPV (7.1-12.4) fL Neut % (Auto) (30.8-76.2) % Lymph % (Auto) (18.4-52.1) % [place] % (Auto) (4.4-15.7) % Eos % (Auto) (0.6-8.1) % Baso % (Auto) (0.2-1.5) % Neut # (Auto) (1.5-6.3) x10-3/uL Lymph # (Auto) (1.0-4.4) x10-3/uL [place] # (Auto) (0.3-1.0) x10-3/uL Eos # (Auto) (0.0-0.8) x10-3/uL Baso # (Auto) (0.0-0.1) x10-3/uL Sodium (135-145) mmol/L Potassium (3.5-5.3) mmol/L Chloride (100-110) mmol/L Carbon Dioxide (21-32) mmol/L BUN (7-18) mg/dL Creatinine (0.55-1.02) mg/dL Est Cr Clr Drug Dosing mL/min Estimated GFR (MDRD) (>60) BUN/Creatinine Ratio (9-20) Glucose (80-116) mg/dL POC Glucose 317 H (80-116) mg/dL Calcium (8.6-10.2) mg/dL Total Bilirubin (0.1-1.3) mg/dL AST (5-25) IU/L ALT (12-36) U/L Alkaline Phosphatase (56-112) IU/L Troponin I (4.0-60.3) pg/mL Total Protein (6.0-8.0) g/dL Albumin (3.2-4.6) g/dL Globulin g/dL Albumin/Globulin Ratio Amylase (25-115) U/L Lipase (73-393) U/L Urine Color (YELLOW) Urine Appearance (CLEAR) Urine pH (5.0-6.5) Ur Specific [place] (1.010-1.025) Urine Protein (NEGATIVE) mg/dL Urine Glucose (UA) (NORMAL) mg/dL Urine Ketones (NEGATIVE) mg/dL Urine Occult Blood (NEGATIVE) Urine Nitrite (NEGATIVE) Urine Bilirubin (NEGATIVE) Urine Urobilinogen (NEGATIVE) mg/dL Ur Leukocyte Esterase (NEGATIVE) U Hyaline Cast (Auto) (NS) Urine RBC (0-5) Urine WBC (0-5) Ur Squamous Epith Cells (NS,R,O) Urine Bacteria (NS) Meds: Medications Discontinued Medications Generic Name Dose Route Start Last Admin Trade Name Freq PRN Reason Stop Dose Admin Hydrocodone Bitart/Acetaminophen 4 tab 08/25/21 18:55 Acetaminophen/Hydrocodone 325-5 Mg Tab PO 08/25/21 18:56 .STK-MED ONE Dextrose/Water 50 ml 08/25/21 21:26 50% Dextrose In Water 50 Ml Syringe IVPUSH ASDIRECTED PRN Hypoglycemia Dextrose/Water 50 ml 08/25/21 21:32 50% Dextrose In Water 50 Ml Syringe IVPUSH ASDIRECTED PRN Hypoglycemia Glucagon 1 mg 08/25/21 21:26 Glucagon,Human Recombinant 1 Mg Vial IM ASDIRECTED PRN Hypoglycemia Glucagon 1 mg 08/25/21 21:32 Glucagon,Human Recombinant 1 Mg Vial IM ASDIRECTED PRN Hypoglycemia Hydromorphone HCl 1 mg 08/25/21 19:26 08/25/21 19:39 Hydromorphone 2 Mg/Ml Sdv IVPUSH 08/25/21 19:27 1 mg ONETIME ONE Administration Hydromorphone HCl 1 mg 08/25/21 21:20 08/25/21 21:33 Hydromorphone 2 Mg/Ml Sdv IM 08/25/21 21:21 Not Given NOW STA Hydromorphone HCl 1 mg 08/25/21 21:22 08/25/21 21:22 Hydromorphone 2 Mg/Ml Sdv IVPUSH 08/25/21 21:23 1 mg NOW STA Administration Hydromorphone HCl Confirm 08/25/21 21:20 08/25/21 21:33 Hydromorphone 2 Mg/Ml Sdv Administered 08/25/21 21:21 Not Given Dose 2 mg .ROUTE .STK-MED ONE Sodium Chloride 1,000 mls @ 999 mls/hr 08/25/21 19:30 08/25/21 19:39 Normal Saline IV 999 mls/hr ASDIRECTED THUAN Administration Insulin Human Regular 15 unit 08/25/21 21:26 08/25/21 23:51 Insulin Regular, Human 100 Units/Ml 3 Ml Vial IV 08/25/21 21:27 Not Given ONETIME ONE Insulin Human Regular 15 unit 08/25/21 21:32 08/25/21 21:35 Insulin Regular, Human 100 Units/Ml 3 Ml Vial SUBCUT 08/25/21 21:33 15 units NOW STA Administration Iopamidol 150 ml 08/25/21 20:21 08/25/21 20:40 Iopamidol 755 Mg/Ml 150 Ml Bottle IV 08/25/21 20:22 128 ml ONETIME ONE Administration Labetalol HCl 20 mg 08/25/21 22:30 08/25/21 22:43 Labetalol 20 Mg/4 Ml Syringe IVPUSH 08/25/21 22:31 20 mg NOW STA Administration Protocol Morphine Sulfate 4 mg 08/25/21 21:55 08/25/21 22:02 Morphine 4 Mg/Ml Vial IVPUSH 08/25/21 21:56 Not Given NOW STA Morphine Sulfate 4 mg 08/25/21 21:58 08/25/21 22:00 Morphine 2 Mg/Ml Syringe IVPUSH 08/25/21 21:59 4 mg ONETIME ONE Administration Morphine Sulfate Confirm 08/25/21 21:57 08/25/21 22:03 Morphine 2 Mg/Ml Syringe Administered 08/25/21 21:58 Not Given Dose 4 mg .ROUTE .STK-MED ONE Ondansetron HCl 4 mg 08/25/21 19:26 08/25/21 19:39 Ondansetron 4 Mg/2 Ml Sdv IVPUSH 08/25/21 19:27 4 mg NOW STA Administration Ondansetron HCl 4 mg 08/25/21 21:13 08/25/21 21:22 Ondansetron 4 Mg/2 Ml Sdv IVPUSH 08/25/21 21:14 4 mg NOW STA Administration Ondansetron HCl 16 mg 08/25/21 18:55 Ondansetron 4 Mg Tab.Dis PO 08/25/21 18:56 .STK-MED ONE Sodium Chloride 10 ml 08/25/21 19:26 08/25/21 22:44 Sodium Chloride 0.9% 10 Ml Syringe FLUSH 10 ml ASDIRECTED PRN Administration Keep Vein Open Departure - Departure Time of Disposition: 22:30 Disposition: Home, Self-Care 01 Condition: Good Clinical Impression: Abdominal pain, Liver mass - Discharge Information Prescriptions: Acetaminophen/HYDROcodone [HYDROcodone-Acetaminophen 5-325 MG *] 1 tab PO Q4H PRN #15 tab PRN Reason: Pain Ondansetron [Zofran ODT] 4 mg PO Q4H PRN #5 tab.dis PRN Reason: nausea Instructions: Abdominal Pain, Adult, [id number] Referrals: PCP,None [Primary Care Provider] - Forms: ED Department Discharge Additional Instructions: Please read discharge instructions on abdominal pain and liver mas Take norco/hydrocone, 1-2 tablets every 4-6 hours as needed for pain Zofran ODT 4 mg every 4 hours as needed for nausea Follow up with your doctor tomorro so he can refer you to see a icu manager/specialist for liver diseases Sepsis Event Note (ED) - Evaluation Sepsis Screening Result: No Definite Risk
[2021-08-25] MEDS ORDERED: Labetalol 20 MG/4 ML Syringe IVPUSH STA (22:30)
[2021-08-25 23:44] VITALS: BP 165/79; PULSE 98
== END 2021-08-25 23:30 | disposition home or self-care (01) ==
LOC: FB.ED 18:54
DX: R16.0 Hepatomegaly, not elsewhere classified (principal); I10 Essential (primary) hypertension; I25.2 Old myocardial infarction; J44.9 Chronic obstructive pulmonary disease, unspecified; E11.9 Type 2 diabetes mellitus without complications; E03.9 Hypothyroidism, unspecified; Z88.5 Allergy status to narcotic agent; E66.9 Obesity, unspecified; Z68.30 Body mass index [BMI] 30.0-30.9, adult; Z88.8 Allergy status to other drugs, medicaments and biological substances; Z79.02 Long term (current) use of antithrombotics/antiplatelets; Z79.82 Long term (current) use of aspirin; Z79.899 Other long term (current) drug therapy; Z79.4 Long term (current) use of insulin; Z87.891 Personal history of nicotine dependence
CPT/HCPCS: 36415; 74177; 80053; 81001; 82150; 82947; 83690; 84484; 85025; 96374; 96375; 96376; 99284-25; A9270-GY; J1170; J1815-GY; J2270; J2405; J3490; J7030; Q9967

== ENCOUNTER 2021-11-02 05:36 | Emergency (ER) | payer BC ==
[2021-11-02] MEDS ORDERED: Sodium Chloride 0.9% 10 ML Syringe FLUSH PRN (05:52)
--- NOTE | 2021-11-02 05:58 | EDM.PDOC ---
<CristianeMello johnson W - Last Filed: 11/02/21 08:48> ED HPI GENERAL MEDICAL PROBLEM - General Time Seen by Provider: 11/02/21 05:45 - Related Data Allergies Allergy/AdvReac Type Severity Reaction Status Date / Time cyclobenzaprine HCl Allergy Mild Irritabilit Verified 11/02/21 05:56 [From Flexeril] y ibuprofen Allergy Mild Hives Verified 11/02/21 05:56 morphine Allergy Mild Rash Verified 11/02/21 05:56 codeine Allergy Unknown Chest Verified 11/02/21 05:56 Tightness tramadol Allergy Other Verified 11/02/21 05:56 Home Meds: Home Meds Aspirin 81 mg PO DAILY 10/12/15 [History] Insulin Detemir [Levemir Flextouch] 80 unit SQ BEDTIME 10/12/15 [History] Lisinopril 30 mg PO DAILY 10/12/15 [History] Insulin Aspart [NovoLOG] 10 units SQ BID PRN 02/21/20 [History] Loratadine 10 mg PO DAILY 02/21/20 [History] Metoprolol Succinate 150 mg PO DAILY 10/30/20 [History] Clopidogrel [Plavix] 75 mg PO DAILY 03/10/21 [History] Ondansetron [Zofran ODT] 4 mg PO Q4H PRN #5 tab.dis 08/25/21 [Rx] ALPRAZolam [Alprazolam] 0.5 mg PO BID 11/02/21 [History] Acetaminophen/oxyCODONE [Percocet 325-5 MG] 1 each PO Q6H PRN 11/02/21 [History] DULoxetine [Cymbalta] 20 mg PO DAILY 11/02/21 [History] DULoxetine [Cymbalta] 60 mg PO DAILY 11/02/21 [History] Omeprazole 40 mg PO DAILY 11/02/21 [History] Prochlorperazine [Compazine] 10 mg PO Q6H PRN 11/02/21 [History] ondansetron HCL [Ondansetron HCl] 8 mg PO Q8H PRN 11/02/21 [History] oxyCODONE 10 mg PO Q4H PRN 11/02/21 [History] Course - Vital Signs Text/Narrative:: Review of laboratory findings shows that the patient has hypocalcemia at 5.7, with albumin corrected to a level of 4.4 her calcium level still 6.6. She also has thrombocytosis of 746. I called [facility] oncology and spoke with Dr. Easton. In consultation with oncology there is no obvious reason for the hypocalcemia or the enhanced thrombocytosis. She did have mild thrombocytosis and mild anemia at her last visit with [facility]. Oncology advised to continue treatment as above here at [place]. Further laboratory analysis showed that the patient has magnesium 0.6 and phosphorus is mildly elevated at 5.0. Patient given 2 g calcium gluconate, 4 g magnesium sulfate IV. Patient continues to have increasing hypertension secondary to medical condition and likely secondary to calcium infusion. Patient will be given 20 mg labetalol IV and closely monitored. Radiology called and informed me that the patient has a distal right ICA occlusion. She has poor collaterals but appears to have perfusion from the ri t posterior circulation. There is also an occlusion of the right A1 JORDIN segment. In consultation with [facility] [address] Brito from neurology patient will be transferred to [place], [place] for neuro ICU observation. Departure - Departure Time of Disposition: 08:52 Disposition: DC/Tfer to Acute Hospital 02 Condition: Undetermined Clinical Impression: CVA (cerebral vascular accident), Hypocalcemia, Hypomagnesemia, Hypertension, Liver cancer, Thrombocytosis, Anemia, Chronic kidney disease, Obesity - Discharge Information *PRESCRIPTION DRUG MONITORING PROGRAM REVIEWED*: Not Applicable *COPY OF PRESCRIPTION DRUG MONITORING REPORT IN PATIENT CHIARA: Not Applicable Instructions: Warning Signs of a Stroke, Hypertension, Adult, [id number], Chronic Kidney Disease, Adult, [id number] Referrals: Jeremy Anne MD [Primary Care Provider] - Forms: ED Department Discharge <William Sifuentes - Last Filed: 11/04/21 07:58> ED HPI GENERAL MEDICAL PROBLEM - General Source of Information: Reports: Patient, Family History Limitations: Reports: No Limitations - History of Present Illness INITIAL COMMENTS - FREE TEXT/NARRATIVE: Patient is a 61 YO WF who presented to the ED because of slurred speech and right facial droop at about 0430. She also c/o bifrontal headache,4/10. There is no double or blurry vision. No weakness or lost of sensation of both arms and legs. Her slurred speech resolved while in the ED. She has a h/o DM2, HTN, Dyslipidemia, Stage 4 Liver CA and previous NSTEMI. She had 3 chemo for her Liver CA which was diagnosed in August 2021. Past Medical History HEENT History: Reports: Other (See Below) Other HEENT History: 12 lower bottom teeth extracted/sutures in place, placed on Amoxicillin 500mg and oxycodone/apap 5mg prn Cardiovascular History: Reports: Hypertension, HI, PTCA, Stents, Other (See Below) Respiratory History: Reports: COPD Gastrointestinal History: Reports: Diverticulosis Genitourinary History: Reports: UTI, Recurrent Other MEDIA PROMOTER History: hysterectomy, Musculoskeletal History: Reports: Arthritis, Neck Pain, Chronic Psychiatric History: Reports: Addiction, Anxiety, Depression, Psych Hospitalization(s), Suicide Attempt Other Psychiatric History: ETOH addiction Endocrine/Metabolic History: Reports: Diabetes, Type II, Hypothyroidism, Obesity/BMI 30+ - Infectious Disease History Infectious Disease History: Reports: Measles - Past Surgical History Head Surgeries/Procedures: Reports: None HEENT Surgical History: Reports: Adenoidectomy, Tonsillectomy Cardiovascular Surgical History: Reports: Coronary Artery Stent Respiratory Surgical History: Reports: None GI Surgical History: Reports: Cholecystectomy, Colonoscopy, EGD Female Surgical History: Reports: Hysterectomy, Salpingo-Oophorectomy, Tubal Ligation, Other (See Below) Other Female Surgeries/Procedures: rectocele Endocrine Surgical History: Reports: Other (See Below) Other Endocrine Surgeries/Procedures: blood sugar reader right upper/arm Social & Family History - Family History Family Medical History: No Pertinent Family History - Caffeine Use Caffeine Use: Reports: None Caffeine Use Comment: 1-2 diet sodas daily ED ROS GENERAL - Review of Systems Review Of Systems: See Below Constitutional: Reports: No Symptoms HEENT: Reports: No Symptoms Respiratory: Reports: No Symptoms Cardiovascular: Reports: No Symptoms Endocrine: Reports: No Symptoms GI/Abdominal: Reports: No Symptoms : Reports: No Symptoms Musculoskeletal: Reports: No Symptoms Skin: Reports: No Symptoms Neurological: Reports: Headache Psychiatric: Reports: No Symptoms Hematologic/Lymphatic: Reports: No Symptoms ED EXAM, NEURO - Physical Exam Exam: See Below Exam Limited By: No Limitations General Appearance: Alert, No Apparent Distress Ears: Normal External Exam, Normal Canal Nose: Normal Inspection, Normal Mucosa, No Blood Throat/Mouth: Normal Inspection, Normal Lips Head Exam: Atraumatic, Normocephalic, Other (Rt facial droop) Neck: Normal Inspection, Supple, Non-Tender Respiratory/Chest: No Respiratory Distress, Lungs Clear, Normal Breath Sounds, No Accessory Muscle Use, Chest Non-Tender Cardiovascular: Normal Peripheral Pulses, Regular Rate, Rhythm, No Edema, No Gallop GI/Abdominal: Normal Bowel Sounds, Soft, Non-Tender, No Organomegaly, No Distention, No Abnormal Bruit Neurological: Alert, Normal Mood/Affect, Normal Dorsiflexion, CN II-XII Intact, Normal Plantar Flexion, Normal Gait, Normal Reflexes, No Motor/Sensory Deficits, Oriented x 3 Back Exam: Normal Inspection, Full Range of Motion Extremities: Normal Inspection, Normal Range of Motion, Non-Tender, No Pedal Edema, Normal Capillary Refill Psychiatric: Normal Affect #1 Interpretation EKG Date: 11/02/21 Time: 05:51 Rhythm: NSR Rate (Beats/Min): 94 [place]: Normal QRS: LBBB ST-T: Normal QT: Normal GA/PQ Interval: 172 Comparison: No Change EKG Interpretation Comments: NSR LBBB Course - Vital Signs Text/Narrative:: Lab/EKG/CXR/Head CT result was reviewed and discussed with patient Neurology consult at [facility] who want patient to be on 24H observation and have an angiogram of the head and neck prior to discharge. He also recommended MRI -brain and MRA brain/neck as an out patient prior to her Neurology follow up. Last Recorded V/S: Last Vital Signs Temp 35.4 C L 11/02/21 05:36 Pulse 107 H 11/02/21 05:36 Resp 18 11/02/21 05:36 BP 155/85 H 11/02/21 05:36 Pulse Ox 98 11/02/21 05:36 - Orders/Labs/Meds Labs: Laboratory Tests 11/02/21 11/02/21 11/02/21 Range/Units 05:40 05:50 06:00 WBC 3.1 (3.0-10.3) x10-3/uL RBC 3.72 (3.60-5.20) x10(6)uL Hgb 10.1 L (11.4-15.5) g/dL Hct 30.7 L (34.2-48.2) % MCV 82.4 (76.7-100.5) fL MCH 27.0 (23.9-33.9) pg MCHC 32.8 (31.9-34.8) g/dL RDW 15.2 (12.3-16.5) % Plt Count 756 H (151-488) x10(3)uL MPV 6.7 L (7.1-12.4) fL Neut % (Auto) 50.3 (30.8-76.2) % Lymph % (Auto) 44.2 (18.4-52.1) % [place] % (Auto) 1.2 L (4.4-15.7) % Eos % (Auto) 3.6 (0.6-8.1) % Baso % (Auto) 0.7 (0.2-1.5) % Neut # (Auto) 1.5 (1.5-6.3) x10-3/uL Lymph # (Auto) 1.3 (1.0-4.4) x10-3/uL [place] # (Auto) 0.0 L (0.3-1.0) x10-3/uL Eos # (Auto) 0.1 (0.0-0.8) x10-3/uL Baso # (Auto) 0.0 (0.0-0.1) x10-3/uL PT (9.0-11.1) sec INR (1.00-1.24) APTT (24.4-33.2) SECONDS Sodium (135-145) mmol/L Potassium (3.5-5.3) mmol/L Chloride (100-110) mmol/L Carbon Dioxide (21-32) mmol/L BUN (7-18) mg/dL Creatinine (0.55-1.02) mg/dL Est Cr Clr Drug Dosing mL/min Estimated GFR (MDRD) (>60) BUN/Creatinine Ratio (9-20) Glucose (80-116) mg/dL POC Glucose 95 D (80-116) mg/dL Calcium (8.6-10.2) mg/dL Phosphorus 5.0 H (2.6-4.6) mg/dL Magnesium 0.6 L* (1.8-2.5) mg/dL Total Bilirubin (0.1-1.3) mg/dL AST (5-25) IU/L ALT (12-36) U/L Alkaline Phosphatase (56-112) IU/L Troponin I (4.0-60.3) pg/mL Total Protein (6.0-8.0) g/dL Albumin (3.2-4.6) g/dL Globulin g/dL Albumin/Globulin Ratio 11/02/21 11/02/21 11/02/21 Range/Units 06:00 06:00 06:00 WBC (3.0-10.3) x10-3/uL RBC (3.60-5.20) x10(6)uL Hgb (11.4-15.5) g/dL Hct (34.2-48.2) % MCV (76.7-100.5) fL MCH (23.9-33.9) pg MCHC (31.9-34.8) g/dL RDW (12.3-16.5) % Plt Count (151-488) x10(3)uL MPV (7.1-12.4) fL Neut % (Auto) (30.8-76.2) % Lymph % (Auto) (18.4-52.1) % [place] % (Auto) (4.4-15.7) % Eos % (Auto) (0.6-8.1) % Baso % (Auto) (0.2-1.5) % Neut # (Auto) (1.5-6.3) x10-3/uL Lymph # (Auto) (1.0-4.4) x10-3/uL [place] # (Auto) (0.3-1.0) x10-3/uL Eos # (Auto) (0.0-0.8) x10-3/uL Baso # (Auto) (0.0-0.1) x10-3/uL PT 11.2 H (9.0-11.1) sec INR 1.04 (1.00-1.24) APTT 26.7 (24.4-33.2) SECONDS Sodium 137 (135-145) mmol/L Potassium 3.6 (3.5-5.3) mmol/L Chloride 99 L (100-110) mmol/L Carbon Dioxide 29 (21-32) mmol/L BUN 20 H (7-18) mg/dL Creatinine 1.3 H (0.55-1.02) mg/dL Est Cr Clr Drug Dosing 32.23 mL/min Estimated GFR (MDRD) 42 L (>60) BUN/Creatinine Ratio 15.4 (9-20) Glucose 121 H D (80-116) mg/dL POC Glucose (80-116) mg/dL Calcium 5.7 L* D (8.6-10.2) mg/dL Phosphorus (2.6-4.6) mg/dL Magnesium (1.8-2.5) mg/dL Total Bilirubin 0.5 (0.1-1.3) mg/dL AST 36 H (5-25) IU/L ALT 23 D (12-36) U/L Alkaline Phosphatase 103 (56-112) IU/L Troponin I 7.3 (4.0-60.3) pg/mL Total Protein 7.9 (6.0-8.0) g/dL Albumin 3.2 (3.2-4.6) g/dL Globulin 4.7 g/dL Albumin/Globulin Ratio 0.7 Meds: Medications Discontinued Medications Generic Name Dose Route Start Last Admin Trade Name Freq PRN Reason Stop Dose Admin Aspirin 324 mg 11/02/21 06:33 11/02/21 06:42 Aspirin 81 Mg Tab.Chew PO 11/02/21 06:34 324 mg NOW STA Administration Calcium Gluconate 2 gm 11/02/21 08:01 11/02/21 08:10 Calcium Gluconate 10% 1 Gm/10 Ml Sdv IVPUSH 11/02/21 08:02 2 gm ONETIME ONE Administration Clopidogrel Bisulfate 75 mg 11/02/21 06:33 11/02/21 06:42 Clopidogrel 75 Mg Tab PO 11/02/21 06:34 75 mg ONETIME ONE Administration Sodium Chloride 1,000 mls @ 125 mls/hr 11/02/21 07:15 11/02/21 07:36 Normal Saline IV 125 mls/hr ASDIRECTED THUAN Administration Magnesium Sulfate 4 gm/ Premix 50 mls @ 12.5 mls/hr 11/02/21 08:28 11/02/21 08:33 IV 11/02/21 12:27 12.5 mls/hr ONETIME ONE Administration Iopamidol 100 ml 12/05/21 06:49 11/02/21 09:45 Iopamidol 755 Mg/Ml 100 Ml Bottle IV 11/02/21 06:50 85 ml . DIRECTED ONE Administration Labetalol HCl 20 mg 11/02/21 08:47 11/02/21 08:47 Labetalol 20 Mg/4 Ml Syringe IVPUSH 11/02/21 08:48 20 mg ONETIME ONE Administration Protocol Sodium Chloride 10 ml 11/02/21 05:52 11/02/21 06:40 Sodium Chloride 0.9% 10 Ml Syringe FLUSH 10 ml ASDIRECTED PRN Administration Keep Vein Open
[2021-11-02 06:06] VITALS: BP 155/85; PULSE 107
[2021-11-02] MEDS ORDERED: Aspirin 81 MG Tab.Chew PO STA (06:33)
[2021-11-02] MEDS ORDERED: Clopidogrel 75 MG Tab PO ONE (06:33)
[2021-11-02] MEDS ORDERED: Iopamidol 755 Mg/ML 100 ML Bottle IV ONE (06:49)
[2021-11-02] MEDS ORDERED: Sodium Chloride 0.9% 1,000 ML IV SCH (07:15)
[2021-11-02] MEDS ORDERED: Calcium Gluconate 10% 1 GM/10 ML SDV IVPUSH ONE (08:01)
[2021-11-02] MEDS ORDERED: Magnesium Sulfate/Water 4 GM in Premix Bag 1 BAG IV ONE (08:28)
[2021-11-02] MEDS ORDERED: Labetalol 20 MG/4 ML Syringe IVPUSH ONE (08:47)
== END 2021-11-02 09:05 ==
LOC: FB.ED 05:36
DX: I63.9 Cerebral infarction, unspecified (principal); E83.51 Hypocalcemia; E83.42 Hypomagnesemia; I12.9 Hypertensive chronic kidney disease with stage 1 through stage 4 chronic kidney disease, or unspecified chronic kidney disease; E11.22 Type 2 diabetes mellitus with diabetic chronic kidney disease; D75.839 Thrombocytosis, unspecified; N18.9 Chronic kidney disease, unspecified; D63.1 Anemia in chronic kidney disease; I25.2 Old myocardial infarction; J44.9 Chronic obstructive pulmonary disease, unspecified; E66.9 Obesity, unspecified; E03.9 Hypothyroidism, unspecified; Z68.42 Body mass index [BMI] 45.0-49.9, adult; Z79.82 Long term (current) use of aspirin; Z79.4 Long term (current) use of insulin; Z79.02 Long term (current) use of antithrombotics/antiplatelets; Z79.899 Other long term (current) drug therapy; Z95.5 Presence of coronary angioplasty implant and graft; Z88.8 Allergy status to other drugs, medicaments and biological substances; Z88.6 Allergy status to analgesic agent; Z88.5 Allergy status to narcotic agent
CPT/HCPCS: 36415; 70450; 70496; 70498; 71045; 80053; 82947; 83735; 83970; 84100; 84484; 85025; 85610; 85730; 93005; 96365; 96367; 96375; 99285; A9270; J0610; J3475; J3490; J7030; Q9967

== ENCOUNTER 2021-11-22 12:30 | Emergency (ER) | payer BC ==
[2021-11-22 12:50] VITALS: BP 130/71; PULSE 107
--- NOTE | 2021-11-22 13:12 | EDM.PDOC ---
ED HPI GENERAL MEDICAL PROBLEM - General Chief Complaint: Headache Stated Complaint: headache Time Seen by Provider: 11/22/21 13:10 Source of Information: Reports: Patient History Limitations: Reports: No Limitations - History of Present Illness INITIAL COMMENTS - FREE TEXT/NARRATIVE: Mildred complains of a headache,starting a few days ago. Occipital,04/07. Has had a recent TIA,and is on chemo for Cholangiocarcinoma. Tried Fioricet and Oxycodone at home with no relief. Treatments SUPERVISOR LOADING: Reports: Other (see below) Other Treatments SUPERVISOR LOADING: Qyjcaxmbuk-Bffzvlqrlthif-Evxnjeaa 50/325 1 tab PRN 0900H Headache Pain Score (Numeric/FACES): 5 Bilateral Lower Leg Pain Score (Numeric/FACES): 3 - Related Data Allergies Allergy/AdvReac Type Severity Reaction Status Date / Time cyclobenzaprine HCl Allergy Mild Irritabilit Verified 11/22/21 12:47 [From Flexeril] y ibuprofen Allergy Mild Hives Verified 11/22/21 12:47 morphine Allergy Mild Rash Verified 11/22/21 12:47 codeine Allergy Unknown Chest Verified 11/22/21 12:47 Tightness tramadol Allergy Other Verified 11/22/21 12:47 Home Meds: Home Meds Aspirin 81 mg PO DAILY 10/12/15 [History] Insulin Detemir [Levemir Flextouch] 80 unit SQ BEDTIME 10/12/15 [History] Lisinopril 30 mg PO DAILY 10/12/15 [History] Insulin Aspart [NovoLOG] 10 units SQ BID PRN 02/21/20 [History] Loratadine 10 mg PO DAILY 02/21/20 [History] Metoprolol Succinate 150 mg PO DAILY 10/30/20 [History] Clopidogrel [Plavix] 75 mg PO DAILY 03/10/21 [History] Ondansetron [Zofran ODT] 4 mg PO Q4H PRN #5 tab.dis 08/25/21 [Rx] ALPRAZolam [Alprazolam] 0.5 mg PO BID 11/02/21 [History] Acetaminophen/oxyCODONE [Percocet 325-5 MG] 1 each PO Q6H PRN 11/02/21 [History] DULoxetine [Cymbalta] 20 mg PO DAILY 11/02/21 [History] DULoxetine [Cymbalta] 60 mg PO DAILY 11/02/21 [History] Omeprazole 40 mg PO DAILY 11/02/21 [History] Prochlorperazine [Compazine] 10 mg PO Q6H PRN 11/02/21 [History] ondansetron HCL [Ondansetron HCl] 8 mg PO Q8H PRN 11/02/21 [History] oxyCODONE 10 mg PO Q4H PRN 11/02/21 [History] Past Medical History HEENT History: Reports: Other (See Below) Other HEENT History: bleeding in R eye Cardiovascular History: Reports: High Cholesterol, Hypertension, [place], PTCA, Stents Respiratory History: Reports: COPD Gastrointestinal History: Reports: Diverticulosis, Other (See Below) Other Gastrointestinal History: hx liver CA Genitourinary History: Reports: UTI, Recurrent FISH FARM MANAGER History: Reports: Other FISH FARM MANAGER History: hysterectomy, Musculoskeletal History: Reports: Arthritis, Neck Pain, Chronic Neurological History: Reports: Migraines Psychiatric History: Reports: Addiction, Anxiety, Depression, Psych Hospitalization(s), Suicide Attempt Other Psychiatric History: ETOH addiction Endocrine/Metabolic History: Reports: Diabetes, Type II, Hypothyroidism, Obesity/BMI 30+ Hematologic History: Reports: Anticoagulation Therapy Other Hematologic History: takes Plavix Oncologic (Cancer) History: Reports: Liver - Infectious Disease History Infectious Disease History: Reports: Mumps - Past Surgical History Head Surgeries/Procedures: Reports: None HEENT Surgical History: Reports: Adenoidectomy, Tonsillectomy Other HEENT Surgeries/Procedures: bilat cataract Cardiovascular Surgical History: Reports: Coronary Artery Stent Respiratory Surgical History: Reports: None GI Surgical History: Reports: Cholecystectomy, Colonoscopy, EGD Female Surgical History: Reports: Hysterectomy, Salpingo-Oophorectomy, Tubal Ligation, Other (See Below) Other Female Surgeries/Procedures: rectocele Endocrine Surgical History: Reports: Other (See Below) Other Endocrine Surgeries/Procedures: blood sugar reader right upper/arm Musculoskeletal Surgical History: Reports: None Social & Family History - Family History Family Medical History: No Pertinent Family History - Caffeine Use Caffeine Use: Reports: Soda Caffeine Use Comment: 1-2 diet sodas daily - Recreational Drug Use Recreational Drug Use: No ED ROS GENERAL - Review of Systems Review Of Systems: Comprehensive ROS is negative, except as noted in HPI. - Physical Exam Exam: See Below Exam Limited By: No Limitations General Appearance: Alert, WD/WN Ears: Normal External Exam Nose: Normal Inspection Throat/Mouth: Normal Inspection Head Exam: Atraumatic, Normocephalic Neck: Normal Inspection Course - Vital Signs Last Recorded V/S: Last Vital Signs Temp 96.5 F L 11/22/21 12:30 Pulse 107 H 11/22/21 12:30 Resp 18 11/22/21 12:30 BP 130/71 11/22/21 12:30 Pulse Ox 96 11/22/21 12:30 - Orders/Labs/Meds Orders: Active Orders 24 hr Category Date Time Status Head wo Cont [CT] Stat Exams 11/22/21 13:09 Ordered Labs: Laboratory Tests 11/22/21 11/22/21 Range/Units 13:15 13:15 WBC 5.2 (3.0-10.3) x10-3/uL RBC 3.22 L (3.60-5.20) x10(6)uL Hgb 9.2 L (11.4-15.5) g/dL Hct 27.8 L (34.2-48.2) % MCV 86.3 (76.7-100.5) fL MCH 28.6 (23.9-33.9) pg MCHC 33.2 (31.9-34.8) g/dL RDW 19.2 H (12.3-16.5) % Plt Count 213 (151-488) x10(3)uL MPV 6.8 L (7.1-12.4) fL Neut % (Auto) 66.9 (30.8-76.2) % Lymph % (Auto) 21.6 (18.4-52.1) % [place] % (Auto) 3.4 L (4.4-15.7) % Eos % (Auto) 7.2 (0.6-8.1) % Baso % (Auto) 0.9 (0.2-1.5) % Neut # (Auto) 3.5 (1.5-6.3) x10-3/uL Lymph # (Auto) 1.1 (1.0-4.4) x10-3/uL [place] # (Auto) 0.2 L (0.3-1.0) x10-3/uL Eos # (Auto) 0.4 (0.0-0.8) x10-3/uL Baso # (Auto) 0.0 (0.0-0.1) x10-3/uL Sodium 136 (135-145) mmol/L Potassium 4.3 (3.5-5.3) mmol/L Chloride 99 L (100-110) mmol/L Carbon Dioxide 33 H (21-32) mmol/L BUN 25 H (7-18) mg/dL Creatinine 1.3 H (0.55-1.02) mg/dL Est Cr Clr Drug Dosing 38.75 mL/min Estimated GFR (MDRD) 42 L (>60) BUN/Creatinine Ratio 19.2 (9-20) Glucose 85 (80-116) mg/dL Calcium 8.7 D (8.6-10.2) mg/dL Phosphorus 3.8 (2.6-4.6) mg/dL Magnesium 2.4 (1.8-2.5) mg/dL Meds: Medications Discontinued Medications Generic Name Dose Route Start Last Admin Trade Name [place] PRN Reason Stop Dose Admin Hydroxyzine HCl 50 mg 11/22/21 14:00 11/22/21 14:05 Hydroxyzine Hcl 50 Mg/Ml Sdv IM 11/22/21 14:01 50 mg ONETIME ONE Administration Meperidine HCl 50 mg 11/22/21 14:00 11/22/21 14:13 Meperidine Pf 50 Mg/Ml Syringe IM 11/22/21 14:01 50 mg ONETIME ONE Administration Departure - Departure Time of Disposition: 15:01 Disposition: Home, Self-Care 01 Clinical Impression: Migraine - Discharge Information Instructions: General Headache Without Cause, General Headache Without Cause, [id number] Referrals: Daniel Schmitt PA [Primary Care Provider] - Forms: ED Department Discharge Additional Instructions: Increase your fluid/water intake. Take your prescribed medication for headache as you need it. Follow-up with your primary care physician as needed. Come back to the ER for any acute worsening headache, dizziness, nausea, vomiting, weakness or other symptoms. Sepsis Event Note (ED) - Focused Exam Vital Signs: Vital Signs Temp Pulse Resp BP Pulse Ox 11/22/21 12:30 96.5 F L 107 H 18 130/71 96 - Problem List & Annotations (1) Headache SNOMED Code(s): 52652961 Code(s): R51.9 - HEADACHE, UNSPECIFIED Status: Acute Current Visit: Yes (2) Hypomagnesemia SNOMED Code(s): 326971923 Code(s): E83.42 - HYPOMAGNESEMIA Status: Acute Current Visit: No - Problem List Review Problem List Initiated/Reviewed/Updated: Yes - My Orders Last 24 Hours: My Active Orders 11/22/21 13:09 Head wo Cont [CT] Stat - Assessment/Plan Last 24 Hours: My Active Orders 11/22/21 13:09 Head wo Cont [CT] Stat Plan: Her labs,including Magnesium,were normal. CT head normal.I gave her parenteral Demerol and Vistaril.
[2021-11-22] MEDS ORDERED: Meperidine PF 50 MG/ML Syringe IM ONE (14:00)
[2021-11-22] MEDS ORDERED: hydrOXYzine HCl 50 MG/ML SDV IM ONE (14:00)
== END 2021-11-22 14:30 | disposition home or self-care (01) ==
LOC: FB.ED 12:30
DX: G43.909 Migraine, unspecified, not intractable, without status migrainosus (principal); E11.9 Type 2 diabetes mellitus without complications; E03.9 Hypothyroidism, unspecified; J44.9 Chronic obstructive pulmonary disease, unspecified; E66.9 Obesity, unspecified; Z68.39 Body mass index [BMI] 39.0-39.9, adult; Z88.5 Allergy status to narcotic agent; Z88.8 Allergy status to other drugs, medicaments and biological substances; Z79.82 Long term (current) use of aspirin; Z79.899 Other long term (current) drug therapy; Z79.02 Long term (current) use of antithrombotics/antiplatelets; Z79.4 Long term (current) use of insulin
CPT/HCPCS: 36415; 70450; 80048; 83735; 84100; 85025; 96372; 99284-25; J2175; J3410

== ENCOUNTER 2022-02-09 19:33 | Emergency (ER) | payer OTHER ==
[2022-02-09] MEDS: Sodium Chloride 0.9% 10 ML Syringe FLUSH PRN ×2 (19:55→21:10)
[2022-02-09] MEDS: Nitroglycerin 0.4 MG Tab.SL SL PRN ×2 (20:00→20:12)
[2022-02-10 04:43] VITALS: BP 130/62
== END 2022-02-09 21:15 | disposition home or self-care (01) ==
LOC: FB.ED 19:33
DX: R07.89 Other chest pain (principal); E78.00 Pure hypercholesterolemia, unspecified; I10 Essential (primary) hypertension; I25.2 Old myocardial infarction; J44.9 Chronic obstructive pulmonary disease, unspecified; E11.9 Type 2 diabetes mellitus without complications; E03.9 Hypothyroidism, unspecified; E66.9 Obesity, unspecified; Z68.39 Body mass index [BMI] 39.0-39.9, adult; Z88.5 Allergy status to narcotic agent; Z88.8 Allergy status to other drugs, medicaments and biological substances; Z79.02 Long term (current) use of antithrombotics/antiplatelets; Z79.4 Long term (current) use of insulin; Z79.899 Other long term (current) drug therapy
CPT/HCPCS: 36415; 80053; 83735; 84484; 85025; 93005; 93010; 99282; 99285-25; A9270-GY; J1642

== ENCOUNTER 2022-03-30 15:24 | Observation (INO) | payer OTHER ==
[2022-03-30] MEDS ORDERED: Magnesium Sulfate/Water 50 ML IV ONE (19:59)
[2022-03-30] MEDS ORDERED: Enoxaparin 30 MG/0.3 ML Syringe ONE (20:26)
[2022-03-30] MEDS: Sodium Chloride 0.9% 10 ML Syringe FLUSH PRN (21:06)
[2022-03-30] MEDS: Sodium Chloride 0.9% 1,000 ML IV SCH (21:07)
[2022-03-30] MEDS ORDERED: Enoxaparin 30 MG/0.3 ML Syringe SUBCUT ONE (21:30)
[2022-03-31] MEDS: Sodium Chloride 0.9% 1,000 ML IV SCH ×2 (06:10→16:52)
[2022-03-31] MEDS ORDERED: INSULIN ASPART SUBCUT PRN (09:04)
[2022-03-31] MEDS ORDERED: cefTRIAXone 1 GM in Sodium Chloride 0.9% 50 ML IV ONE (09:08)
[2022-03-31] MEDS ORDERED: Aspirin 81 MG Tab.Chew PO SCH (09:15)
[2022-03-31] MEDS ORDERED: Clopidogrel 75 MG Tab PO SCH (09:15)
[2022-03-31] MEDS ORDERED: Nitroglycerin 0.4 MG Tab.SL SL PRN (09:16)
[2022-03-31] MEDS ORDERED: Magnesium Sulfate/Water 50 ML IV ONE (09:30)
[2022-03-31] MEDS ORDERED: cefTRIAXone 1 GM Vial IVPUSH ONE (09:30)
[2022-03-31] MEDS: Magnesium Chloride 64 MG Tab.ER PO SCH ×2 (10:29→20:11)
[2022-03-31] MEDS: atorvaSTATin 10 MG Tab PO SCH (10:29)
[2022-03-31] MEDS: ALPRAZolam 0.5 MG Tab PO SCH ×2 (10:30→20:26)
[2022-03-31] MEDS: Ondansetron 8 MG Tab.DIS PO SCH ×2 (10:33→20:14)
[2022-03-31] MEDS: Pantoprazole 40 MG Tab.CR PO SCH (10:34)
[2022-03-31] MEDS: Loratadine 10 MG Tab PO SCH (10:34)
[2022-03-31] MEDS: Metoprolol Succinate 100 MG Tab.ER PO SCH (10:34)
[2022-03-31] MEDS: Prochlorperazine 10 MG Tab PO SCH (10:35)
[2022-03-31] MEDS: INSULIN LISPRO 100 UNIT/ML SUBCUT SCH ×2 (11:15→17:51)
[2022-03-31] MEDS: AZO PO SCH ×2 (11:30→20:10)
[2022-03-31] MEDS ORDERED: fentaNYL 25 MCG/HR Transdermal Patch TRDERM SCH (14:00)
[2022-03-31] MEDS ORDERED: Enoxaparin 40 MG/0.4 ML Syringe SUBCUT SCH (17:00)
[2022-03-31] MEDS: DULoxetine 20 MG Cap PO SCH (20:11)
[2022-03-31] MEDS: DULoxetine 60 MG Cap PO SCH (20:11)
[2022-03-31] MEDS: INSULIN DETEMIR 100 UNIT/ML SUBCUT SCH (20:12)
[2022-03-31] MEDS: HYDROmorphone 2 MG Tab PO PRN (20:26)
[2022-03-31] MEDS: Loperamide 2 MG Cap PO PRN (20:33)
[2022-04-01] MEDS: AZO PO SCH ×3 (04:05→19:55)
[2022-04-01] MEDS: Loperamide 2 MG Cap PO PRN (04:11)
[2022-04-01] MEDS: atorvaSTATin 10 MG Tab PO SCH (08:14)
[2022-04-01] MEDS: Magnesium Chloride 64 MG Tab.ER PO SCH ×2 (08:14→20:03)
[2022-04-01] MEDS: Loratadine 10 MG Tab PO SCH (08:14)
[2022-04-01] MEDS: Pantoprazole 40 MG Tab.CR PO SCH (08:14)
[2022-04-01] MEDS: Prochlorperazine 10 MG Tab PO SCH (08:14)
[2022-04-01] MEDS: Ondansetron 8 MG Tab.DIS PO SCH ×2 (08:14→20:04)
[2022-04-01] MEDS: INSULIN LISPRO 100 UNIT/ML SUBCUT SCH ×3 (08:16→17:48)
[2022-04-01] MEDS: Metoprolol Succinate 100 MG Tab.ER PO SCH (08:23)
[2022-04-01] MEDS: ALPRAZolam 0.5 MG Tab PO SCH ×2 (08:23→20:03)
[2022-04-01] MEDS: Cephalexin 500 MG Cap PO SCH ×2 (08:49→20:04)
[2022-04-01] MEDS: Sodium Chloride 0.9% 10 ML Syringe FLUSH PRN ×3 (14:14→23:34)
[2022-04-01] MEDS ORDERED: Sodium Chloride 0.9% 250 ML IV SCH (15:15)
[2022-04-01] MEDS: HYDROmorphone 2 MG Tab PO PRN ×2 (18:23→22:25)
[2022-04-01] MEDS: DULoxetine 20 MG Cap PO SCH (20:04)
[2022-04-01] MEDS: INSULIN DETEMIR 100 UNIT/ML SUBCUT SCH (20:04)
[2022-04-01] MEDS: DULoxetine 60 MG Cap PO SCH (20:04)
[2022-04-02] MEDS: AZO PO SCH (04:02)
[2022-04-02] MEDS: Sodium Chloride 0.9% 10 ML Syringe FLUSH PRN (06:33)
[2022-04-02] MEDS: INSULIN LISPRO 100 UNIT/ML SUBCUT SCH (07:53)
[2022-04-02] MEDS: atorvaSTATin 10 MG Tab PO SCH (08:01)
[2022-04-02] MEDS: Loratadine 10 MG Tab PO SCH (08:01)
[2022-04-02] MEDS: Prochlorperazine 10 MG Tab PO SCH (08:01)
[2022-04-02] MEDS: Cephalexin 500 MG Cap PO SCH (08:01)
[2022-04-02] MEDS: Pantoprazole 40 MG Tab.CR PO SCH (08:02)
[2022-04-02] MEDS: Magnesium Chloride 64 MG Tab.ER PO SCH (08:02)
[2022-04-02] MEDS: Metoprolol Succinate 100 MG Tab.ER PO SCH (08:02)
[2022-04-02 08:03] VITALS: BP 116/55; PULSE 97
[2022-04-02] MEDS: ALPRAZolam 0.5 MG Tab PO SCH (08:03)
[2022-04-02] MEDS: Ondansetron 8 MG Tab.DIS PO SCH (08:03)
[2022-04-02 22:07] LABS: ADENOVIRUS F 40/41 Not Detected (Not Detected); ASTROVIRUS Not Detected (Not Detected); C DIFFICILE TOXIN A/B Not Detected (Not Detected); CAMPYLOBACTER Not Detected (Not Detected); CRYPTOSPORIDIUM Not Detected (Not Detected); CYCLOSPORA CAYETANENSIS Not Detected (Not Detected); ENTAMOEBA HISTOLYTICA Not Detected (Not Detected); ENTEROAGGREGATIVE E COLI Not Detected (Not Detected); ENTEROPATHOGENIC E COLI Not Detected (Not Detected); ENTEROTOXIGENIC E COLI Not Detected (Not Detected); GIARDIA LAMBLIA Not Detected (Not Detected); NOROVIRUS GI/GII Not Detected (Not Detected); PLESIOMONAS SHIGELLOIDES Not Detected (Not Detected); ROTAVIRUS A Not Detected (Not Detected); SALMONELLA Not Detected (Not Detected); SAPOVIRUS Not Detected (Not Detected); SHIGA-TOXIN-PRODUCING E COLI Not Detected (Not Detected); SHIGELLA/ENTEROINVASIVE E COLI Not Detected (Not Detected); VIBRIO Not Detected (Not Detected); VIBRIO CHOLERAE Not Detected (Not Detected); YERSINIA ENTEROCOLITICA Not Detected (Not Detected)
== END 2022-04-02 09:45 | disposition home or self-care (01) ==
LOC: FB.MS 15:24 → INTOOBSV 15:24
PROVIDERS: ADMIT Student in an Organized Health Care Education/Training Program; ATTEND Student in an Organized Health Care Education/Training Program
DX: R53.1 Weakness (principal); E87.1 Hypo-osmolality and hyponatremia; N17.9 Acute kidney failure, unspecified; N39.0 Urinary tract infection, site not specified; R00.0 Tachycardia, unspecified; I95.9 Hypotension, unspecified; E78.00 Pure hypercholesterolemia, unspecified; I25.2 Old myocardial infarction; F41.9 Anxiety disorder, unspecified; E03.9 Hypothyroidism, unspecified; E66.9 Obesity, unspecified; I12.9 Hypertensive chronic kidney disease with stage 1 through stage 4 chronic kidney disease, or unspecified chronic kidney disease; N18.32 Chronic kidney disease, stage 3b; E83.42 Hypomagnesemia; C22.9 Malignant neoplasm of liver, not specified as primary or secondary; Z88.8 Allergy status to other drugs, medicaments and biological substances; Z88.5 Allergy status to narcotic agent; Z79.82 Long term (current) use of aspirin; Z98.890 Other specified postprocedural states; Z90.49 Acquired absence of other specified parts of digestive tract; Z79.899 Other long term (current) drug therapy
CPT/HCPCS: 0097U; 36415; 36430; 51798; 80048; 81001; 82270; 83735; 85014; 85018; 85025; 86850; 86900; 86901; 86920; 86922; 87086; 87088; 87186; A9270; J0696; J1642; J1650; J1815; J3475; J3490; J7030; J7050; P9016; Q0164; 96365; 96366; 96372; 96375; G0378; G0379